=== PATIENT | female | born 1935 | race Caucasian/White ===

== ENCOUNTER 2018-05-22 09:09 | Inpatient (IN) ==
[2018-05-22 09:35] LABS: Basophils # 0.1 K/mm3 (0-0.2); Basophils % 0.2 % (0.1-2.0); Eosinophils # 0.1 K/mm3 (0.0-0.4); Eosinophils % 0.3 % (0.1-12.0); Hematocrit 36.8 % (37.0-47.0); Hemoglobin 11.8 g/dL (12.2-16.2); Lymphocytes # 1.9 K/mm3 (0.7-4.5); Lymphocytes % 8.1 % (10-50); Mean Corpuscular HGB Conc 31.9 g/dL (31.8-35.4); Mean Corpuscular Hemoglobin 28.7 pg (27.0-31.2); Mean Corpuscular Volume 89.9 fl (81-99); Mean Platelet Volume 7.8 fl (7.4-10.4); Monocytes # 0.9 K/mm3 (0.1-1.0); Neutrophils # 20.6 K/mm3 (1.8-7.8); Neutrophils % 87.4 % (37.0-80.0); Platelet Count 335 K/mm3 (142-424); Red Cell Distribution Width 13.8 % (11.5-17.5); White Blood Count 23.6 K/mm3 (4.8-10.8)
[2018-05-22 09:46] LABS: Albumin Level 3.2 gm/dL (3.4-5.0); Albumin/Globulin Ratio 0.7 (1.1-1.8); Anion Gap 19.8 mEq/L (5-15); Calcium 8.9 mg/dL (8.5-10.1); Globulin 4.3 gm/dl (1.3-3.2); Potassium 4.8 mmoL/L (3.5-5.1); Total Protein,Serum 7.5 gm/dL (6.4-8.2)
[2018-05-22 09:50] LABS: Lymphocytes % 7 % (10-50); Monocytes % 6 % (2-9); Neutrophils % 72 % (42-76); RBC Morphology Normal; Total Cells Counted 100
--- NOTE | 2018-05-22 11:35 | Emergency Department Note ---
ED Disposition Clinical Impression: Proctocolitis, Acute renal failure, Dehydration Disposition: Admitted as Observation Condition on Discharge: Fair Instructions: DI for Gastrointestinal Bleeding Referrals: Clari Graham MD [Primary Care Provider] - Time of Disposition: 12:09 - Critical Care Critical Care Time: No Attestation: On 05/22/18, the high probability of a clinically significant, sudden or life threatening deterioration of the following system(s) required my full and direct attention, intervention and personal management. The time I documented below is in addition to time spent performing reported procedures but includes the fol lowing listed in this critical care notation. Medical Decision Making - Medical Records Medical records reviewed: Yes: I reviewed the patient's medical records. - Atul Inquiry Pt receiving controlled substance: No Atul was queried for this patient: No Vital Signs: 05/22/18 09:10 05/22/18 09:31 05/22/18 09:59 Temperature 98.4 F Temperature Source Oral Pulse Rate [Right Radial] 120 H 92 H Respiratory Rate 18 20 Blood Pressure [Right Arm] 102/52 L 89/54 L 113/51 L Blood Pressure Mean [Right Arm] 68 65 71 Blood Pressure Source [Right Arm] Automatic Cuff Automatic Cuff Blood Pressure Position [Right Arm] Sitting Supine 02 Sat by Pulse Oximetry 98 98 Oxygen Delivery Method Room Air Room Air 05/22/18 10:59 05/22/18 11:52 Temperature Temperature Source Pulse Rate [Right Radial] 93 H 91 H Respiratory Rate 18 Blood Pressure [Right Arm] 105/53 L 98/46 L Blood Pressure Mean [Right Arm] 70 63 Blood Pressure Source [Right Arm] Automatic Cuff Blood Pressure Position [Right Arm] Sitting 02 Sat by Pulse Oximetry 96 94 L Oxygen Delivery Method Room Air - Lab Data Lab Results 05/22/18 09:16: WBC 23.6 H*, RBC 4.10 L, Hgb 11.8 L, Hct 36.8 L, MCV 89.9, MCH 28.7, MCHC 31.9, RDW 13.8, Plt Count 335, MPV 7.8, Neut % (Auto) 87.4 H, Lymph % (Auto) 8.1 L, [place] % (Auto) 4.0, Eos % (Auto) 0.3, Baso % (Auto) 0.2, Neut # (Auto) 20.6 H, Lymph # (Auto) 1.9, [place] # (Auto) 0.9, Eos # (Auto) 0.1, Baso # (Auto) 0.1, Total Counted 100, Neutrophils % (Manual) 72, Band Neutrophils % 14.0 H, Lymphocytes % (Manual) 7 L, Atypical Lymphs % 1.0, Monocytes % (Manual) 6, Platelet Estimate Normal, RBC Morphology Normal 05/22/18 09:16: Sodium 133 L, Potassium 4.8, Chloride 99, Carbon Dioxide 19 L, Anion Gap 19.8 H, BUN 72 H, Creatinine 3.72 H, Estimated Creat Clear 16, Estimated GFR 12 L*, Est GFR ( Amer) 14 L*, Glucose 138 H, Calcium 8.9, Total Bilirubin 1.0, AST 60 H, ALT 37, Alkaline Phosphatase 134 H, Total Protein 7.5, Albumin 3.2 L, Globulin 4.3 H, Albumin/Globulin Ratio 0.7 L, Lipase 94 05/22/18 09:33: Stool Occult Blood Positive A 05/22/18 09:55: Lactate 1.5 Result diagrams: 05/22/18 09:16 05/22/18 09:16 Orders (Tests/Meds): ED MEDICATIONS Generic Name Dose Route Start Last Admin Trade Name Freq PRN Reason Stop Dose Admin Sodium Chloride 1,000 mls @ 500 mls/hr 05/22/18 09:30 05/22/18 10:52 Sod Chlor 0.9% 1000ml Bag IV 06/21/18 09:29 500 mls/hr .Q2H SANDRA Administration Sodium Chloride 2,540 mls @ 1,270 mls/hr 05/22/18 10:11 Sod Chlor 0.9% 1000ml Bag 30 ml/kg infuse over 2 hr (2540 ml) 05/22/18 12:10 IV .Q2H ONE Discontinued Medications Generic Name Dose Route Start Last Admin Trade Name Freq PRN Reason Stop Dose Admin Piperacillin Sod/Tazobactam 100 mls @ 200 mls/hr 05/22/18 11:30 05/22/18 11:41 Sod 4.5 gm/ Sodium Chloride IV 05/22/18 11:31 200 mls/hr Q6H SANDRA Administration Protocol Morphine Sulfate 2 mg 05/22/18 09:21 05/22/18 10:00 Morphine 2mg/Ml Syringe IV 05/22/18 09:22 2 mg ONCE ONE Administration Ondansetron HCl 4 mg 05/22/18 09:21 05/22/18 09:36 Zofran 4mg/2ml Vial IV 05/22/18 09:22 4 mg ONCE ONE Administration ORDERS Category Date Time Status Occult Blood,Stool Stat Lab 05/22/18 09:33 Ordered UA [Urinalysis and Microscopic] Stat Lab 05/22/18 09:20 Ordered Blood Culture Stat Micro 05/22/18 09:55 Received General Adult HPI - General Chief complaint: GI Bleed Stated complaint: black stools Time Seen by Provider: 05/22/18 09:15 Mode of Arrival: Family Vehicle Limitations: No Limitations Description of Symptoms (Recalled from ER Triage Doc. by RN): pt states she has had diarrhea starting tuesday and last night the stool turned black. pt states she took some pepto bismol for the diarrhea. - History of Present Illness HPI narrative: diarrhea, progressive weakness, black stools but taking pepto - Related Data Home Medications Medication Instructions Recorded Confirmed Allopurinol [Allopurinol 100mg 100 mg PO DAILY PRN 05/22/18 05/22/18 tablet] Atorvastatin Calcium [Atorvastatin 20 mg PO DAILY 05/22/18 05/22/18 20mg Tab] Lisinopril [Lisinopril 40mg Tablet] 40 mg PO DAILY 05/22/18 05/22/18 Triamterene/Hydrochlorothiazid 1 each PO DAILY 05/22/18 05/22/18 [Triamterene-Hctz 50-25 mg Cap] Allergies Allergy/AdvReac Type Severity Reaction Status Date / Time codeine Allergy Verified 05/22/18 09:21 Iodinated Contrast Media - Allergy Verified 05/22/18 09:21 Oral and [facility] History - Hepatitis A Screen Drug use history?: No High risk sexual behaviors?: No History of sexually transmitted infection?: No Currently employed?: No Childcare worker?: No Do you have indoor plumbing?: Yes Do you have electricity?: Yes Attestation statement:: This patient has been screened for Hepatitis A risk factors. I have reviewed the patient's past medical history: No Medical History: Reports:: Cancer (breast,melanoma, colon) Denies:: Diabetes Mellitus Type 1, Diabetes Mellitus Type 2, MRSA Laterality Cases: Left: Lumpectomy Amputation: No - Social History Smoking Status: Never smoker Alcohol Intake: never - Psychiatric History Expresses thoughts of harming self/others: None Suicide Plan Description: No Plan ROS Obtained: Yes Systems reviewed as appropriate & no additional complaints - Constitutional Constitutional: Reports system reviewed and no additional complaints, except as docu, Reports chills, Reports fever(s), Reports malaise, Reports weakness - Eyes Eyes: Reports system reviewed and no additional complaints, except as docu, Denies change in vision - ENT Ears, Nose, Mouth, and Throat: Reports system reviewed and no additional complaints, except as docu, Denies throat swelling, Denies other - Cardiovascular Cardiovascular: Reports system reviewed and no additional complaints, except as docu, Denies chest pain, Denies chest pain at rest, Denies chest pain with activity, Denies dyspnea - Respiratory Respiratory: Yes system reviewed and no additional complaints, except as docu, No pain on inspiration, No pain with cough - Gastrointestinal Gastrointestingal: Reports: system reviewed and no additional complaints, except as docu, abdominal pain, diarrhea, nausea, vomiting Comments: severe rectal pain - Musculoskeletal Musculoskeletal: Reports system reviewed and no additional complaints, except as docu, Denies joint pain, Denies tingling - Integumentary/Breasts Skin/Breast: Reports system reviewed and no additional complaints, except as docu, Denies rash, Denies skin pain - Neurologic Neurologic: Denies confusion, Denies sensory deficit, Reports weakness - Hematologic/Lymphatic Henatologic/Lymphatic: Denies easy bleeding, Denies easy bruising, Denies lymphadenopathy Physical Exam - General General appearance: alert, in no apparent distress - Head Head exam: atraumatic, normocephalic, normal inspection - Eye Eye exam: Present: normal appearance, PERRL, EOMI - ENT ENT exam: Present: normal exam, normal oropharynx, mucous membranes moist, TM's normal bilaterally, normal external ear exam - Neck Neck exam: Present: normal inspection, full ROM, trachea midline. Absent: meningismus, lymphadenopathy - Chest Chest inspection: Present: normal inspection, symmetric chest wall rise. Absent: tenderness - Respiratory Respiratory exam: Present: normal lung sounds bilaterally. Absent: respiratory distress - Cardiovascular Cardiovascular exam: Present: regular rate, tachycardia. Absent: JVD - Abdominal Exam Abdominal exam: Present: soft, tenderness. Absent: distention, guarding, rebound, rigidity - Extremities Exam Extremities exam: Present: normal inspection, normal capillary refill. Absent: full ROM, tenderness - Back Exam Back exam: Present: normal inspection. Absent: tenderness - Neurological Exam Neurological exam: Present: alert, oriented X3 - Lymphatic Lymphatic Findings: no adenopathy
--- NOTE | 2018-05-22 13:12 | History & Physical Report ---
*Admission Date: 05/22/18 *Chief complaint: Diarrhea and abdominal pain *History of present illness: Ms. Ryan is an 82-year-old female with a history of breast and colon cancer, hypertension, and gout who presented to [facility] emergency room with 2 days of diarrhea. Patient states she was having stools every 10 minutes for the past 2 days. Then her stool turned black yesterday after taking Pepto-Bismol. She also experienced nausea and vomited x2. She continued taking her diuretic and lisinopril. She had minimal p.o. intake. She did void yesterday. In the emergency room she was given IV fluid bolus, morphine sulfate for the abdominal discomfort and a dose of piperacillin and Zofran IV. Stool was noted to be positive for occult blood. White blood cell count was 23,000 with a hemoglobin of 11 .8 and hematocrit of 36.8. BUN and creatinine were elevated at 72/3.72. Blood pressure was low at 89/54 -98/46. CT of the abdomen/pelvis was abnormal revealing proctitis and cholecystitis. Patient was thus admitted with IV fluids and GI rest. Diarrhea panel has been ordered. At the time of this exam patient is feeling better. She has had no diarrhea since being admitted. She has not voided either. Since receiving the morphine her abdomen does not hurt. Her biggest complaint now is her hemorrhoids. The morphine has helped these as well. 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 - *Social History Smoking Status: Never smoker Alcohol Intake: never Travel in the last 8 weeks: None - Psychiatric History Expresses thoughts of harming self/others: None Suicide Plan Description: No Plan *Family Hx:: Cancer, Coronary Artery Disease, Diabetes Review of Systems - Constitutional Reports lack of energy, Reports weakness, Denies fever(s) - ENT Reports dizziness, Denies ear pain, Denies sore throat - *Cardiovascular Denies chest pain, Denies shortness of breath, Denies leg swelling, Denies fast heart rate - *Respiratory Denies chest congestion, Denies cough, Denies shortness of breath, Denies coughing up blood - *Gastrointestinal Reports abdominal pain, Reports change in stools, Reports black, tarry stools, Reports nausea, Reports vomiting - *Genitourinary Denies painful urination - *Musculoskeletal Reports muscle weakness (She had to have assistance with walking when coming to the hospital) - *Neurologic Reports unsteadiness, Reports dizziness, Reports weakness, Denies confusion, Denies sensory deficit, Denies tingling Meds Home Medications Medication Instructions Recorded Confirmed Type Allopurinol [Allopurinol 100mg 100 mg PO DAILYP PRN 05/22/18 05/22/18 History tablet] Atorvastatin Calcium [Atorvastatin 20 mg PO MOWEFR 05/22/18 05/22/18 History 20mg Tab] Cholecalciferol (Vitamin D3) 2,000 unit PO DAILY 05/22/18 05/22/18 History [Vitamin D3 1,000 Unit Tab] Lisinopril [Lisinopril 40mg Tablet] 40 mg PO DAILY 05/22/18 05/22/18 History Meclizine HCl [Antivert 25mg 25 mg PO TIDP PRN 05/22/18 05/22/18 History tablet] Multivitamin [Multivitamins] 1 each PO DAILY 05/22/18 05/22/18 History Triamterene/Hydrochlorothiazid 1 tab PO DAILY 05/22/18 05/22/18 History [Maxzide-25 tablet] hydroCHLOROthiazide 12.5 mg PO DAILYP PRN 05/22/18 05/22/18 History [Hydrochlorothiazide 12.5mg Tab] Allergies Allergy/AdvReac Type Severity Reaction Status Date / Time codeine Allergy Verified 05/22/18 09:21 Iodinated Contrast Media - Allergy Verified 05/22/18 09:21 Oral and Exam Vital signs and Labs for Last 24 Hours: Temp Pulse Resp BP Pulse Ox 98.4 F 91 H 18 98/46 L 94 L 05/22/18 09:10 05/22/18 11:52 05/22/18 11:52 05/22/18 11:52 05/22/18 11:52 Laboratory Results - last 24 hr 05/22/18 09:16: WBC 23.6 H*, RBC 4.10 L, Hgb 11.8 L, Hct 36.8 L, MCV 89.9, MCH 28.7, MCHC 31.9, RDW 13.8, Plt Count 335, MPV 7.8, Neut % (Auto) 87.4 H, Lymph % (Auto) 8.1 L, [place] % (Auto) 4.0, Eos % (Auto) 0.3, Baso % (Auto) 0.2, Neut # (Auto) 20.6 H, Lymph # (Auto) 1.9, [place] # (Auto) 0.9, Eos # (Auto) 0.1, Baso # (Auto) 0.1, Total Counted 100, Neutrophils % (Manual) 72, Band Neutrophils % 14.0 H, Lymphocytes % (Manual) 7 L, Atypical Lymphs % 1.0, Monocytes % (Manual) 6, Platelet Estimate Normal, RBC Morphology Normal 05/22/18 09:16: Sodium 133 L, Potassium 4.8, Chloride 99, Carbon Dioxide 19 L, Anion Gap 19.8 H, BUN 72 H, Creatinine 3.72 H, Estimated Creat Clear 16, Estimated GFR 12 L*, Est GFR ( Amer) 14 L*, Glucose 138 H, Calcium 8.9, Total Bilirubin 1.0, AST 60 H, ALT 37, Alkaline Phosphatase 134 H, Total Protein 7.5, Albumin 3.2 L, Globulin 4.3 H, Albumin/Globulin Ratio 0.7 L, Lipase 94 05/22/18 09:33: Stool Occult Blood Positive A 05/22/18 09:55: Lactate 1.5 I & O for Last 24 hours: Intake & Output 05/20/18 05/21/18 05/22/18 05/23/18 11:59 11:59 11:59 11:59 Weight 187 lb Radiology Reports for the Last 24 Hours: 05/22/18 CT of abdomen/pelvis IMPRESSION: 1. Mild diffuse of the sigmoid colon and rectum. There is moderate stranding of the perirectal and presacral fat. Proctocolitis is considered. This does not have the typical appearance for diverticulitis being more diffuse than what one would expect for diverticulitis. There has been prior surgery at the recto sigmoid junction. Infiltrating neoplasm not totally excluded but felt to be less likely. Follow-up is recommended. Old studies are not available for comparison. 2. Cholelithiasis. 3. Right adrenal adenoma 4. Other nonacute findings as described above - Constitutional no acute distress Comments: Lying comfortably in hospital bed - *Routine HEENT Exam Head: Present: normocephalic, atraumatic Eye: Present: PERRL. Absent: conjunctival icterus, scleral injection ENT: Present: mucous membranes moist, nares patent - *Routine Neck Exam Present: supple. Absent: carotid bruit, lymphadenopathy, thyromegaly - *Routine Respiratory Exam Present: CTA bilaterally (Anteriorly and posteriorly) - *Routine Cardiovascular Exam Present: RRR - *Routine Abdominal Exam Present: soft, normoactive bowel sounds, tenderness (Mildly tender in lower quadrants). Absent: distended, guarding, organomegaly - *Routine Rectal Exam Digital: Present: hemorrhoid (Significant bulging edematous hemorrhoids), external hemorrhoid - *Routine Extremities Exam Present: pulses intact. Absent: edema, calf tenderness - *Routine Neurological Exam Present: alert, oriented X3 Assessment and Plan (1) Hypotension Current visit: Yes Status: Acute Category: Medical Code(s): I95.9 - Hypotension, unspecified (2) Dehydration Current visit: Yes Status: Acute Category: Medical Code(s): E86.0 - Dehydration (3) Proctocolitis Current visit: Yes Status: Acute Category: Medical Code(s): K52.9 - Noninfective gastroenteritis and colitis, unspecified (4) Acute renal failure Current visit: Yes Status: Acute Category: Medical Code(s): N17.9 - Acute kidney failure, unspecified (5) Hemorrhoids Current visit: Yes Status: Acute Category: Medical Code(s): K64.9 - Unspecified hemorrhoids (6) Gout Current visit: Yes Status: Chronic Category: Medical Code(s): M10.9 - Gout, unspecified (7) History of colon cancer Current visit: Yes Status: Resolved Category: Medical Code(s): Z85.038 - Personal history of other malignant neoplasm of large intestine (8) History of hypertension Current visit: Yes Status: Chronic Category: Medical Code(s): Z86.79 - Personal history of other diseases of the circulatory system - Assessment and plan all Dx Assessment and Plan for all problems:: She has been started on Zosyn and Flagyl IV. She is receiving IV fluids. Diarrhea panel has been ordered. She is on GI rest and can have clear liquids as tolerated. We will add cream for her hemorrhoids. She is receiving morphine for pain. Labs have been ordered for in the a.m.
--- NOTE | 2018-05-22 14:17 | Pharmacy Consult Notes ---
[facility] Pharmacy VTE Monitoring - Patient Demographics Admission date: 05/22/18 Report Date: 05/22/18 Time: 14:17 Allergies/Adverse Reactions: Patient Allergies codeine Allergy (Verified 05/22/18 09:21) Iodinated Contrast Media - Oral and Allergy (Verified 05/22/18 09:21) Height: 1.6 m Weight: 89.896 kg Patient Problems: Current Active Problems Proctocolitis (Acute) Acute renal failure (Acute) Dehydration (Acute) - VTE Risk Labs: VTE Related Lab Results Hgb 11.8 g/dL (12.2-16.2) L 05/22/18 09:16 Hct 36.8 % (37.0-47.0) L 05/22/18 09:16 Plt Count 335 K/mm3 (142-424) 05/22/18 09:16 BUN 72 mg/dL (7-18) H 05/22/18 09:16 Creatinine 3.72 mg/dL (0.55-1.02) H 05/22/18 09:16 Estimated Creat Clear 16 mL/min (50-200) 05/22/18 09:16 - Prophylaxis VTE Prophylaxis Ordered?: Yes Types of VTE Prophylaxis: TEDS Knee High Location of Applied Device: Bilateral Lower Extremeties
[2018-05-22 19:24] LABS: Microscopic, Urine URINE MICROSCOPIC (MICROSCOPIC)
[2018-05-22 19:31] LABS: Appearance,Urine SL CLOUDY (Clear); Bilirubin,Urine Negative (Negative); Blood, Urine 2+ (Negative); Color,Urine YELLOW (Yellow); Glucose,Urine (UA) Negative (Negative); Ketones,Urine Negative (Negative); Leukocyte Esterase,Urine 2+ (Negative); Protein,Urine 1+ (Negative); Urobilinogen,Urine 0.2 EU/dl (0.2)
[2018-05-22 19:56] LABS: Bacteria,Urine 4+ /lpf; WBC,Urine 20-50 #/hpf (0-3)
[2018-05-23 07:37] LABS: Basophils # 0.1 K/mm3 (0-0.2); Basophils % 0.3 % (0.1-2.0); Eosinophils # 0.1 K/mm3 (0.0-0.4); Eosinophils % 0.4 % (0.1-12.0); Hematocrit 32.4 % (37.0-47.0); Lymphocytes # 1.4 K/mm3 (0.7-4.5); Lymphocytes % 8.7 % (10-50); Mean Corpuscular Hemoglobin 29.4 pg (27.0-31.2); Mean Corpuscular Volume 92.1 fl (81-99); Mean Platelet Volume 7.9 fl (7.4-10.4); Monocytes # 0.8 K/mm3 (0.1-1.0); Neutrophils # 13.2 K/mm3 (1.8-7.8); Neutrophils % 85.6 % (37.0-80.0); Platelet Count 249 K/mm3 (142-424); Red Blood Count 3.52 M/mm3 (4.20-5.40); Red Cell Distribution Width 13.7 % (11.5-17.5); White Blood Count 15.5 K/mm3 (4.8-10.8)
[2018-05-23 07:39] LABS: Anion Gap 14.3 mEq/L (5-15); Calcium 8.2 mg/dL (8.5-10.1); Potassium 4.3 mmoL/L (3.5-5.1)
--- NOTE | 2018-05-23 08:27 | Progress Note ---
Internal Medicine - PN: Subj *Date: 05/23/18 (n) *Time: 08:24 Interval history: Patient's biggest complaint are her hemorrhoids this morning. He states morphine helps briefly. She has had one additional stool during the night and describes it is mushy. She is also voiding. She denies chest pain and shortness of breath. She has retained clear liquids and tolerated well. Abdomen is sore. White blood cell count has decreased to 15,500. BUN and creatinine have improved to 58/2.49. IV fluids are at 125. Exam Vital signs and Labs for Last 24 Hours: Temp Pulse Resp BP Pulse Ox 98.3 F 86 17 112/48 L 97 05/23/18 07:31 05/23/18 07:31 05/23/18 07:31 05/23/18 07:31 05/23/18 07:31 Laboratory Results - last 24 hr 05/22/18 09:16: WBC 23.6 H*, RBC 4.10 L, Hgb 11.8 L, Hct 36.8 L, MCV 89.9, MCH 28.7, MCHC 31.9, RDW 13.8, Plt Count 335, MPV 7.8, Neut % (Auto) 87.4 H, Lymph % (Auto) 8.1 L, [place] % (Auto) 4.0, Eos % (Auto) 0.3, Baso % (Auto) 0.2, Neut # (Auto) 20.6 H, Lymph # (Auto) 1.9, [place] # (Auto) 0.9, Eos # (Auto) 0.1, Baso # (Auto) 0.1, Total Counted 100, Neutrophils % (Manual) 72, Band Neutrophils % 14.0 H, Lymphocytes % (Manual) 7 L, Atypical Lymphs % 1.0, Monocytes % (Manual) 6, Platelet Estimate Normal, RBC Morphology Normal 05/22/18 09:16: Sodium 133 L, Potassium 4.8, Chloride 99, Carbon Dioxide 19 L, Anion Gap 19.8 H, BUN 72 H, Creatinine 3.72 H, Estimated Creat Clear 16, Estimated GFR 12 L*, Est GFR ( Amer) 14 L*, Glucose 138 H, Calcium 8.9, Total Bilirubin 1.0, AST 60 H, ALT 37, Alkaline Phosphatase 134 H, Total Protein 7.5, Albumin 3.2 L, Globulin 4.3 H, Albumin/Globulin Ratio 0.7 L, Lipase 94 05/22/18 09:33: Stool Occult Blood Positive A 05/22/18 09:55: Lactate 1.5 05/22/18 19:15: Urine Color Yellow, Urine Appearance Sl cloudy, Urine pH 6.0, Ur Specific [place] 1.020, Urine Protein 1+, Urine Glucose (UA) Negative, Urine Ketones Negative, Urine Blood 2+, Urine Nitrate Negative, Urine Bilirubin Negative, Urine Urobilinogen 0.2, Ur Leukocyte Esterase 2+ A, Urine WBC 20-50, Ur Squamous Epith Cells 10-20, Urine Bacteria 4+ 05/23/18 02:30: Stl Aeromonas (PCR) Not detected, Stl C. cayetanensis PCR Not detected, Stool Rotavirus (PCR) Not detected, Stl Adenov F 40/41 PCR Not detected, Stool Astrovirus (PCR) Not detected, Stool Campylobacter PCR Not detected, Stl C.difficile Tox PCR Not detected, Stool Cryptosporidium PCR Not detected, Stl E.coli Shiga Tox PCR Not detected, Stool E coli O157 PCR Not detected, Stl Enterotoxigenic E PCR Not detected, Stool EPEC (PCR) Not detected, Stool EAEC (PCR) Not detected, Stl E. histolytica PCR Not detected, Stool Giardia [place]lia PCR Not detected, Stool Salmonella PCR Not detected, Stool Sapovirus (PCR) Not detected, Stl P. shigelloides PCR Not detected, Stl Shigella/EIEC PCR Not detected, St Y.enterocolitica PCR Not detected, Stool Vibrio (PCR) Not detected, Stl Vibrio cholerae PCR Not detected, Stl Norovirus GI/GII PCR Not detected 05/23/18 07:07: WBC 15.5 H D, RBC 3.52 L, Hct 32.4 L, MCV 92.1, MCH 29.4, MCHC 32.0, RDW 13.7, Plt Count 249 D, MPV 7.9, Neut % (Auto) 85.6 H, Lymph % (Auto) 8.7 L, [place] % (Auto) 5.0, Eos % (Auto) 0.4, Baso % (Auto) 0.3, Neut # (Auto) 13.2 H, Lymph # (Auto) 1.4, [place] # (Auto) 0.8, Eos # (Auto) 0.1, Baso # (Auto) 0.1 05/23/18 07:07: Sodium 136, Potassium 4.3, Chloride 104, Carbon Dioxide 22, Anion Gap 14.3, BUN 58 H, Creatinine 2.49 H D, Estimated Creat Clear 25, Estimated GFR 19 L*, Est GFR ( Amer) 22 L D, Glucose 103 D, Calcium 8.2 L I & O for Last 24 hours: Intake & Output 05/20/18 05/21/18 05/22/18 05/23/18 11:59 11:59 11:59 11:59 Intake Total 4216 / 4216 Output Total 850 / 850 Balance 3366 / 3366 Weight 187 lb 198 lb 3 oz - Constitutional no acute distress Comments: Awake and alert - *Routine Respiratory Exam Present: CTA bilaterally (Anteriorly and posteriorly) - *Routine Cardiovascular Exam Present: RRR - *Routine Abdominal Exam Present: soft, normoactive bowel sounds. Absent: tenderness, distended - *Routine Rectal Exam Digital: Present: external hemorrhoid (Less edema) - *Routine Extremities Exam Absent: edema, calf tenderness (NIKKI hose on) - *Routine Neurological Exam Present: alert, oriented X3 Assessment and Plan (1) Hypotension Current visit: Yes Status: Acute Category: Medical Code(s): I95.9 - Hypotension, unspecified (2) Dehydration Current visit: Yes Status: Acute Category: Medical Code(s): E86.0 - Dehydration (3) Proctocolitis Current visit: Yes Status: Acute Category: Medical Code(s): K52.9 - Noninfective gastroenteritis and colitis, unspecified (4) Acute renal failure Current visit: Yes Status: Acute Category: Medical Code(s): N17.9 - Acute kidney failure, unspecified (5) Hemorrhoids Current visit: Yes Status: Acute Category: Medical Code(s): K64.9 - Unspecified hemorrhoids (6) Gout Current visit: Yes Status: Chronic Category: Medical Code(s): M10.9 - Gout, unspecified (7) History of colon cancer Current visit: Yes Status: Resolved Category: Medical Code(s): Z85.038 - Personal history of other malignant neoplasm of large intestine (8) History of hypertension Current visit: Yes Status: Chronic Category: Medical Code(s): Z86.79 - Personal history of other diseases of the circulatory system (9) Diarrhea Current visit: Yes Status: Acute Category: Medical Code(s): R19.7 - Diarrhea, unspecified - Assessment and plan all Dx Assessment and Plan for all problems:: Diarrhea has improved. Remains on IV antibiotics. Renal function has improved although still abnormal. We will continue with IV fluids for now. We will add lidocaine ointment and Tucks for her hemorrhoids. Will advance diet to full liquids
[2018-05-23 12:54] LABS: Hemoglobin 10.5 g/dL (12.2-16.2)
[2018-05-23 13:52] LABS: Lymphocytes % 11 % (10-50); Monocytes % 5 % (2-9); Neutrophils % 82 % (42-76); Total Cells Counted 100
[2018-05-23 13:53] LABS: RBC Morphology Normal
[2018-05-24 08:18] LABS: Basophils # 0.1 K/mm3 (0-0.2); Basophils % 0.5 % (0.1-2.0); Eosinophils # 0.1 K/mm3 (0.0-0.4); Eosinophils % 0.8 % (0.1-12.0); Hematocrit 31.1 % (37.0-47.0); Hemoglobin 9.9 g/dL (12.2-16.2); Lymphocytes % 10.4 % (10-50); Mean Corpuscular HGB Conc 31.8 g/dL (31.8-35.4); Mean Corpuscular Hemoglobin 29.4 pg (27.0-31.2); Mean Corpuscular Volume 92.5 fl (81-99); Mean Platelet Volume 7.8 fl (7.4-10.4); Monocytes # 0.6 K/mm3 (0.1-1.0); Monocytes % 5.8 % (1.7-9.3); Neutrophils # 8.2 K/mm3 (1.8-7.8); Neutrophils % 82.6 % (37.0-80.0); Platelet Count 287 K/mm3 (142-424); Red Blood Count 3.36 M/mm3 (4.20-5.40); Red Cell Distribution Width 13.7 % (11.5-17.5); White Blood Count 9.9 K/mm3 (4.8-10.8)
--- NOTE | 2018-05-24 08:26 | Progress Note ---
Addendum entered and electronically signed by MANISHA Cha 05/24/18 08:29: Of note, patient's BMI is 35.1. Original Note: Internal Medicine - PN: Subj *Date: 05/24/18 *Time: 08:23 Interval history: Patient states she is still not feeling well this morning. She continues to have diarrhea and it is dark in color. She states she still has lower abdominal cramping. Her hemorrhoids are still large. She does feel stronger after eating and drinking. Exam Vital signs and Labs for Last 24 Hours: Temp Pulse Resp BP Pulse Ox 98.3 F 81 15 107/48 L 96 05/24/18 07:27 05/24/18 07:27 05/24/18 07:27 05/24/18 07:27 05/24/18 07:27 Laboratory Results - last 24 hr 05/23/18 07:07: Hgb 10.5 L D, Total Counted 100, Neutrophils % (Manual) 82 H, Band Neutrophils % 2.0, Lymphocytes % (Manual) 11, Monocytes % (Manual) 5, Platelet Estimate Normal, RBC Morphology Normal I & O for Last 24 hours: Intake & Output 05/21/18 05/22/18 05/23/18 05/24/18 11:59 11:59 11:59 11:59 Intake Total 4676 / 4676 4308 / 4308 Output Total 1050 / 1050 450 / 450 Balance 3626 / 3626 3858 / 3858 Weight 187 lb 198 lb 3 oz Microbiology Reports for the Last 24 Hours: Microbiology 05/22/18 19:15 Urine,Clean Catch Urine Culture - Preliminary NO GROWTH AFTER 24 HOURS - Constitutional no acute distress - *Routine Respiratory Exam Present: CTA bilaterally - *Routine Cardiovascular Exam Present: RRR - *Routine Abdominal Exam Present: soft, normoactive bowel sounds, tenderness (bilateral lower quadrants) - *Routine Extremities Exam Absent: cyanosis, clubbing, edema - *Routine Skin Exam Present: warm. Absent: rash Assessment and Plan (1) Hypotension Current visit: Yes Status: Acute Category: Medical Code(s): I95.9 - Hypotension, unspecified (2) Dehydration Current visit: Yes Status: Acute Category: Medical Code(s): E86.0 - Dehydration (3) Proctocolitis Current visit: Yes Status: Acute Category: Medical Code(s): K52.9 - Noninfective gastroenteritis and colitis, unspecified (4) Acute renal failure Current visit: Yes Status: Acute Category: Medical Code(s): N17.9 - Acute kidney failure, unspecified (5) Hemorrhoids Current visit: Yes Status: Acute Category: Medical Code(s): K64.9 - Unspecified hemorrhoids (6) Gout Current visit: Yes Status: Chronic Category: Medical Code(s): M10.9 - Gout, unspecified (7) History of colon cancer Current visit: Yes Status: Resolved Category: Medical Code(s): Z85.038 - Personal history of other malignant neoplasm of large intestine (8) History of hypertension Current visit: Yes Status: Chronic Category: Medical Code(s): Z86.79 - Personal history of other diseases of the circulatory system (9) Diarrhea Current visit: Yes Status: Acute Category: Medical Code(s): R19.7 - Diarrhea, unspecified - Assessment and plan all Dx Assessment and Plan for all problems:: White blood cell count and renal functions have improved. Will repeat labs tomorrow. Diarrhea continues. Patient will need a colonoscopy once colitis resolves. She states she already has an appointment with her surgeon for a colonoscopy at the end of May.
[2018-05-24 08:39] LABS: Anion Gap 14.9 mEq/L (5-15); Calcium 8.1 mg/dL (8.5-10.1); Potassium 3.9 mmoL/L (3.5-5.1)
[2018-05-25 07:23] LABS: Basophils # 0.1 K/mm3 (0-0.2); Basophils % 0.6 % (0.1-2.0); Eosinophils # 0.1 K/mm3 (0.0-0.4); Hemoglobin 9.9 g/dL (12.2-16.2); Lymphocytes # 1.7 K/mm3 (0.7-4.5); Mean Corpuscular Hemoglobin 28.5 pg (27.0-31.2); Mean Corpuscular Volume 91.9 fl (81-99); Mean Platelet Volume 7.2 fl (7.4-10.4); Monocytes # 0.7 K/mm3 (0.1-1.0); Monocytes % 7.7 % (1.7-9.3); Neutrophils # 6.8 K/mm3 (1.8-7.8); Neutrophils % 72.6 % (37.0-80.0); Platelet Count 316 K/mm3 (142-424); Red Blood Count 3.48 M/mm3 (4.20-5.40); Red Cell Distribution Width 13.6 % (11.5-17.5); White Blood Count 9.4 K/mm3 (4.8-10.8)
[2018-05-25 07:27] LABS: Albumin Level 2.5 gm/dL (3.4-5.0); Albumin/Globulin Ratio 0.7 (1.1-1.8); Bilirubin,Total 0.5 mg/dL (0.2-1.0); Calcium 8.4 mg/dL (8.5-10.1); Globulin 3.5 gm/dl (1.3-3.2)
--- NOTE | 2018-05-25 09:25 | Progress Note ---
Internal Medicine - PN: Subj *Date: 05/25/18 *Time: 09:22 Interval history: She is feeling much better. She is having less discomfort from her hemorrhoidal tissue. Her bowel movements are loose but not frequent. Her white blood cell count is normal. On exam there is much less edema and inflammation of the hemorrhoidal tissue. A significant amount of this was able to be reduced this morning. Exam Vital signs and Labs for Last 24 Hours: Temp Pulse Resp BP Pulse Ox 98.3 F 78 18 145/63 H 97 05/25/18 07:27 05/25/18 07:27 05/25/18 07:27 05/25/18 07:27 05/25/18 07:42 Laboratory Results - last 24 hr 05/25/18 07:07: WBC 9.4, RBC 3.48 L, Hgb 9.9 L, Hct 32.0 L, MCV 91.9, MCH 28.5, MCHC 31.0 L, RDW 13.6, Plt Count 316, MPV 7.2 L, Neut % (Auto) 72.6, Lymph % (Auto) 18.0, Dunn % (Auto) 7.7, Eos % (Auto) 1.0, Baso % (Auto) 0.6, Neut # (Auto) 6.8, Lymph # (Auto) 1.7, Dunn # (Auto) 0.7, Eos # (Auto) 0.1, Baso # (Auto) 0.1 05/25/18 07:07: Sodium 139, Potassium 4.0, Chloride 105, Carbon Dioxide 22, Anion Gap 16.0 H, BUN 24 H D, Creatinine 1.58 H, Estimated Creat Clear 39, Estimated GFR 31 L, Est GFR ( Amer) 38 L D, Glucose 105, Calcium 8.4 L, Total Bilirubin 0.5, AST 26 D, ALT 30, Alkaline Phosphatase 69, Total Protein 6.0 L, Albumin 2.5 L, Globulin 3.5 H, Albumin/Globulin Ratio 0.7 L I & O for Last 24 hours: Intake & Output 05/22/18 05/23/18 05/24/18 05/25/18 11:59 11:59 11:59 11:59 Intake Total 4676 / 4676 4408 / 4408 921 / 921 Output Total 1050 / 1050 650 / 650 Balance 3626 / 3626 3758 / 3758 921 / 921 Weight 187 lb 198 lb 3 oz 198 lb 2.988 oz Microbiology Reports for the Last 24 Hours: Microbiology 05/22/18 19:15 Urine,Clean Catch Urine Culture - Final NO GROWTH AFTER 48 HOURS 05/22/18 09:55 Blood Blood Culture - Preliminary NO GROWTH AFTER 48 HOURS 05/22/18 09:55 Blood Blood Culture - Preliminary NO GROWTH AFTER 48 HOURS - Constitutional no acute distress - *Routine HEENT Exam Head: Present: normocephalic Eye: Present: PERRL ENT: Present: mucous membranes moist - *Routine Respiratory Exam Absent: respiratory distress - *Routine Cardiovascular Exam Present: RRR - *Routine Abdominal Exam Present: soft. Absent: tenderness - *Routine Rectal Exam Comments: Less induration and inflammation of the hemorrhoidal tissue. A significant amount could be reduced this morning. There is no bleeding. - *Routine Extremities Exam Present: edema (Trace) - *Routine Neurological Exam Present: alert, oriented X3 Assessment and Plan (1) Proctocolitis Current visit: Yes Status: Acute Category: Medical Code(s): K52.9 - Noninfective gastroenteritis and colitis, unspecified (2) Hypotension Current visit: Yes Status: Acute Category: Medical Code(s): I95.9 - Hypotension, unspecified (3) Dehydration Current visit: Yes Status: Acute Category: Medical Code(s): E86.0 - Dehydration (4) Acute renal failure Current visit: Yes Status: Acute Category: Medical Code(s): N17.9 - Acute kidney failure, unspecified (5) Hemorrhoids Current visit: Yes Status: Acute Category: Medical Code(s): K64.9 - Unspecified hemorrhoids (6) Gout Current visit: Yes Status: Chronic Category: Medical Code(s): M10.9 - Gout, unspecified (7) History of colon cancer Current visit: Yes Status: Resolved Category: Medical Code(s): Z85.038 - Personal history of other malignant neoplasm of large intestine (8) History of hypertension Current visit: Yes Status: Chronic Category: Medical Code(s): Z86.79 - Personal history of other diseases of the circulatory system (9) Diarrhea Current visit: Yes Status: Acute Category: Medical Code(s): R19.7 - Diarrhea, unspecified - Assessment and plan all Dx Assessment and Plan for all problems:: Advance diet. Perhaps we can discharge tomorrow.
--- NOTE | 2018-05-26 08:27 | Progress Note ---
Internal Medicine - PN: Subj *Date: 05/26/18 *Time: 08:24 Interval history: Patient states she is feeling better today. She is still having watery stool but it is no longer dark black, it is more green in color. She states she slept better last night and is eating well this morning. She denies any pain other than in her rectal area. Her hemorrhoids were reduced yesterday by Dr. tripathi but she states she thinks 1 of them has come out again. Exam Vital signs and Labs for Last 24 Hours: Temp Pulse Resp BP Pulse Ox 98.5 F 79 18 121/63 95 05/26/18 04:00 05/26/18 04:00 05/26/18 04:00 05/26/18 04:00 05/26/18 04:00 I & O for Last 24 hours: Intake & Output 05/23/18 05/24/18 05/25/18 05/26/18 11:59 11:59 11:59 11:59 Intake Total 4676 / 4676 4408 / 4408 1021 / 1021 920 / 920 Output Total 1050 / 1050 650 / 650 Balance 3626 / 3626 3758 / 3758 1021 / 1021 920 / 920 Weight 198 lb 3 oz 198 lb 2.988 oz - Constitutional no acute distress - *Routine Respiratory Exam Present: CTA bilaterally - *Routine Cardiovascular Exam Present: RRR - *Routine Abdominal Exam Present: soft, normoactive bowel sounds. Absent: tenderness - *Routine Extremities Exam Absent: cyanosis, clubbing, edema Assessment and Plan (1) Proctocolitis Current visit: Yes Status: Acute Category: Medical Code(s): K52.9 - Noninfective gastroenteritis and colitis, unspecified (2) Hypotension Current visit: Yes Status: Acute Category: Medical Code(s): I95.9 - Hypotension, unspecified (3) Dehydration Current visit: Yes Status: Acute Category: Medical Code(s): E86.0 - Dehydration (4) Acute renal failure Current visit: Yes Status: Acute Category: Medical Code(s): N17.9 - Acute kidney failure, unspecified (5) Hemorrhoids Current visit: Yes Status: Acute Category: Medical Code(s): K64.9 - Unspecified hemorrhoids (6) Gout Current visit: Yes Status: Chronic Category: Medical Code(s): M10.9 - Gout, unspecified (7) History of colon cancer Current visit: Yes Status: Resolved Category: Medical Code(s): Z85.038 - Personal history of other malignant neoplasm of large intestine (8) History of hypertension Current visit: Yes Status: Chronic Category: Medical Code(s): Z86.79 - Personal history of other diseases of the circulatory system (9) Diarrhea Current visit: Yes Status: Acute Category: Medical Code(s): R19.7 - Diarrhea, unspecified - Assessment and plan all Dx Assessment and Plan for all problems:: Patient is improving. We will continue IV antibiotics. Will discuss further care with Dr. tripathi.
--- NOTE | 2018-05-26 14:49 | Discharge Summary ---
General - General Admission date:: 05/22/18 Discharge date: 05/26/18 HPI HPI: Ms. Ryan is an 82-year-old female with a history of breast and colon cancer, hypertension, and gout who presented to [facility] emergency room with 2 days of diarrhea. Patient states she was having stools every 10 minutes for the past 2 days. Then her stool turned black yesterday after taking Pepto-Bismol. She also experienced nausea and vomited x2. She continued taking her diuretic and lisinopril. She had minimal p.o. intake. She did void yesterday. In the emergency room she was given IV fluid bolus, morphine sulfate for the abdominal discomfort and a dose of piperacillin and Zofran IV. Stool was noted to be positive for occult blood. White blood cell count was 23,000 with a hemoglobin of 11 .8 and hematocrit of 36.8. BUN and creatinine were elevated at 72/3.72. Blood pressure was low at 89/54 -98/46. CT of the abdomen/pelvis was abnormal revealing proctitis and cholelithiasis. Patient was thus admitted with IV fluids and GI rest. Diarrhea panel has been ordered. At the time of this exam patient is feeling better. She has had no diarrhea since being admitted. She has not voided either. Since receiving the morphine her abdomen does not hurt. Her biggest complaint now is her hemorrhoids. The morphine has helped these as well. Hospital Course Hospital Course: The patient was started on Zosyn and Flagyl as well as IV fluids. A diarrhea panel was ordered and she was placed on GI rest with clear liquids as tolerated. Morphine was ordered for her pain. Cream was ordered for her very enlarged hemorrhoids. Her white blood cell count and renal functions did improve. She tolerated clear liquids and her diet was advanced. Her diarrhea panel was negative. Her diarrhea continued, but she was able to tolerate her diet. It was felt she would need a colonoscopy once the colitis resolved. She already has an appointment for a colonoscopy the end of May with her surgeon in [place]. Her stools did turn from dark to a green color. Her hemorrhoids were causing her significant pain, therefore they were reduced by Dr. tripathi. Her white blood cell count normalized and her renal functions continued to improve. Her urine and blood cultures showed no growth. Her diet was advanced and she tolerated this well. She was stable to be discharged home on flagyl as well as medication for her hemorroids and will follow up with Dr. Tripathi next Tuesday. We will arrange for endoscopy at that time. Objective Vital signs: Temp Pulse Resp BP Pulse Ox 98.5 F 86 18 144/74 H 96 05/26/18 08:00 05/26/18 08:00 05/26/18 08:00 05/26/18 08:00 05/26/18 08:19 Narrative: - Constitutional no acute distress Comments: Lying comfortably in hospital bed - *Routine HEENT Exam Head: Present: normocephalic, atraumatic Eye: Present: PERRL. Absent: conjunctival icterus, scleral injection ENT: Present: mucous membranes moist, nares patent - *Routine Neck Exam Present: supple. Absent: carotid bruit, lymphadenopathy, thyromegaly - *Routine Respiratory Exam Present: CTA bilaterally (Anteriorly and posteriorly) - *Routine Cardiovascular Exam Present: RRR - *Routine Abdominal Exam Present: soft, normoactive bowel sounds, tenderness (Mildly tender in lower q uadrants). Absent: distended, guarding, organomegaly - *Routine Rectal Exam Digital: Present: hemorrhoid (Significant bulging edematous hemorrhoids), external hemorrhoid - *Routine Extremities Exam Present: pulses intact. Absent: edema, calf tenderness - *Routine Neurological Exam Present: alert, oriented X3 Results Labs on day of discharge: Preliminary micro results at discharge 05/22/18 09:55 Blood Culture - Preliminary Blood NO GROWTH AFTER 48 HOURS 05/22/18 09:55 Blood Culture - Preliminary Blood NO GROWTH AFTER 48 HOURS DS: Diagnosis - Discharge Diagnosis (1) Proctocolitis Status: Acute (2) Hypotension Status: Acute (3) Dehydration Status: Acute (4) Acute renal failure Status: Acute (5) Hemorrhoids Status: Acute (6) Gout Status: Chronic (7) History of colon cancer Status: Resolved (8) History of hypertension Status: Chronic (9) Diarrhea Status: Acute Discharge Plan - Patient Discharge Instructions ACTIVITY: Limited activity DIET: advance to your usual diet Patient Instructions: Diarrhea, [place] Diet, DI for Dehydration -- Adult, DI for Hemorrhoids - Follow up Plan Follow up with: Clari Tripathi MD [Primary Care Provider] - 05/30/18 (appt in [facility]) Disposition: Home, [facility] Medications: Home Medications Medication Instructions Recorded Confirmed Type Allopurinol [Allopurinol 100mg 100 mg PO DAILYP PRN 05/22/18 05/22/18 History tablet] Atorvastatin Calcium [Atorvastatin 20 mg PO MOWEFR 05/22/18 05/22/18 History 20mg Tab] Cholecalciferol (Vitamin D3) 2,000 unit PO DAILY 05/22/18 05/22/18 History [Vitamin D3 1,000 Unit Tab] Lisinopril [Lisinopril 40mg Tablet] 40 mg PO DAILY 05/22/18 05/22/18 History Meclizine HCl [Antivert 25mg 25 mg PO TIDP PRN 05/22/18 05/22/18 History tablet] Multivitamin [Multivitamins] 1 each PO DAILY 05/22/18 05/22/18 History Triamterene/Hydrochlorothiazid 1 tab PO DAILY 05/22/18 05/22/18 History [Maxzide-25 tablet] hydroCHLOROthiazide 12.5 mg PO DAILYP PRN 05/22/18 05/22/18 History [Hydrochlorothiazide 12.5mg Tab] Hydrocortisone Acetate [Anusol HC 30 mg RC BID #14 supp.rect 05/26/18 Rx 30mg Supp] Hydrocortisone [Hydrocortisone 1 gm TP QID #45 tube 05/26/18 Rx 2.5% Cream 28gm Tube] Lidocaine [Lidocaine 5% ointment 1 gm TP NEEDED PRN #45 tube 05/26/18 Rx 35gm tube] metroNIDAZOLE [metroNIDAZOLE 500mg 500 mg PO TID #21 tab 05/26/18 Rx Tablet] Prescriptions/Medication Reconciliation: New Lidocaine [Lidocaine 5% ointment 35gm tube] 1 gm TP NEEDED PRN #45 tube PRN Reason: Hemorrhoids metroNIDAZOLE [metroNIDAZOLE 500mg Tablet] 500 mg PO TID #21 tab Hydrocortisone [Hydrocortisone 2.5% Cream 28gm Tube] 1 gm TP QID #45 tube Hydrocortisone Acetate [Anusol HC 30mg Supp] 30 mg RC BID #14 supp.rect Continue Lisinopril [Lisinopril 40mg Tablet] 40 mg PO DAILY Multivitamin [Multivitamins] 1 each PO DAILY Meclizine HCl [Antivert 25mg tablet] 25 mg PO TIDP PRN PRN Reason: Dizziness hydroCHLOROthiazide [Hydrochlorothiazide 12.5mg Tab] 12.5 mg PO DAILYP PRN PRN Reason: SWELLING Cholecalciferol (Vitamin D3) [Vitamin D3 1,000 Unit Tab] 2,000 unit PO DAILY Atorvastatin Calcium [Atorvastatin 20mg Tab] 20 mg PO MOWEFR Allopurinol [Allopurinol 100mg tablet] 100 mg PO DAILYP PRN PRN Reason: gout Triamterene/Hydrochlorothiazid [Maxzide-25 tablet] 1 tab PO DAILY
== END 2018-05-26 14:05 | disposition home or self-care (01) | DRG 641 ==
LOC: ER 09:09 → 2ND 09:09 → OBSVTOIN 13:44 → 2ND 13:45
PROVIDERS: ADMIT Family Medicine; ATTEND Family Medicine
CPT/HCPCS: 36415; 74176; 80048; 80053; 81001; 82272; 83605; 83690; 85007; 85025; 87040; 87086; 87507; 96365; 96366; 96367; 96375; 99282; G0328; J2405; J2543

== ENCOUNTER → 2018-11-29 10:00 | Outpatient (CLI) | payer MEDICARE, BC, MEDICAID, SELFPAY ==
--- NOTE | 2018-11-29 10:06 | XR_ITS ---
XR hand RT min 3V HISTORY: ITS.REASON: INCLUSION CYST 3RD FINGER ORDERING PHYSICIAN: Clari Graham MD PATIENT AGE: 83 years COMPARISON: None FINDINGS: Bone density is normal. There are multiple areas of joint space narrowing especially the interphalangeal joints of all digits and the third MCP joint and severe narrowing at the first carpal/metacarpal joint and narrowed joint space between the scaphoid bone and the trapezium and trapezoid carpal bones. There is no acute fracture. There is soft tissue prominence posteriorly at the level of the distal phalanx of the third digit and there is associated curvilinear calcifications within the soft tissues in this area. There is no bone deformity or fracture. There is no periosteal reaction. Impression: Areas of osteoarthritis as described above. Soft tissue prominence with calcified densities could be related to the history of a inclusion cyst within the soft tissues at the tip of the third digit. There is no associated osseous abnormality.
== END ==
PROVIDERS: PCP Family Medicine; Visit Provider Family Medicine
DX: L72.0 Epidermal cyst (principal)
CPT/HCPCS: 73130

== ENCOUNTER → 2019-04-27 12:34 | Outpatient (CLI) | payer MEDICARE, BC, MEDICAID, SELFPAY ==
--- NOTE | 2019-04-27 12:42 | XR_ITS ---
PROCEDURE: XR CHEST 2V CLINICAL HISTORY: ACUTE URI Cough and congestion COMPARISON: No exams were available for comparison FINDINGS: Mild cardiomegaly without failure. Lungs are clear bilaterally. The lungs are clear without infiltrates, suspicious nodules, or pleural effusions. No acute bony abnormalities. IMPRESSION: Mild cardiomegaly otherwise negative Dictated by: Bandar Faustin MD 04/27/2019 17:53 Electronically signed by Bandar Faustin MD in [place] 04/27/2019 17:53
== END ==
PROVIDERS: PCP Family Medicine; Visit Provider Physician Assistant
DX: J06.9 Acute upper respiratory infection, unspecified (principal)
CPT/HCPCS: 71046

== ENCOUNTER → 2020-07-23 10:48 | Outpatient (CLI) | payer MEDICARE, BC, MEDICAID, SELFPAY ==
[2020-07-23 12:45] LABS: Chloride 106 mmol/L (98-107); Potassium 4.5 mmoL/L (3.5-5.1); Sodium 140 mmol/L (136-145)
[2020-07-23 12:47] LABS: Blood Urea Nitrogen 25 mg/dl (7-17); Estimated Glomerular Filt Rate 39 ml/min (>60); GFR (African American) 47 ML/MIN (>60)
[2020-07-23 12:48] LABS: Alanine Aminotransferase 16 U/L (12-78); Albumin Level 4.3 g/dl (3.5-5.0); Albumin/Globulin Ratio 1.4 (1.1-1.8); Alkaline Phosphatase 87 U/L (38-126); Anion Gap 10.5 mEq/L (5-15); Aspartate Amino Transferase 23 U/L (14-36); Bilirubin,Total 0.5 mg/dl (0.2-1.3); Calcium 9.6 mg/dl (8.4-10.2); Carbon Dioxide 28 mmol/L (22.0-30.0); Glucose 104 mg/dl (74-100); Total Protein,Serum 7.3 g/dl (6.3-8.2)
[2020-07-23 12:57] LABS: NT Pro Brain Natriuretic Pep. 132 pg/mL (0-450)
[2020-07-23 13:08] LABS: Uric Acid 7.4 mg/dl (2.5-6.2)
== END ==
PROVIDERS: Visit Provider Physician Assistant
DX: R60.0 Localized edema (principal); E79.0 Hyperuricemia without signs of inflammatory arthritis and tophaceous disease; I10 Essential (primary) hypertension; R06.02 Shortness of breath
CPT/HCPCS: 80053; 83880; 84550

== ENCOUNTER → 2021-03-26 10:31 | Outpatient (CLI) | payer MEDICARE, BC, MEDICAID, SELFPAY | PROVIDERS: PCP Family Medicine; Visit Provider Nurse Practitioner | DX: Z20.822 Contact with and (suspected) exposure to COVID-19 (principal) | CPT/HCPCS: C9803; U0003; U0005 ==

== ENCOUNTER → 2021-09-24 10:18 | Outpatient (CLI) | payer MEDICARE, MEDICAID, SELFPAY ==
--- NOTE | 2021-09-24 10:30 | US_ITS ---
FINAL REPORT CLINICAL HISTORY: GALLSTONES FINDINGS: Sonographic images of the right upper quadrant were obtained. The pancreas is partially obscured. The liver is fatty infiltrated. There are several hepatic cysts measuring up to 2.8 cm. There are gallstones present. There is no evidence of biliary ductal dilatation.The common duct measures 3 mm. Limited images of the right kidney are unremarkable. IMPRESSION: Cholelithiasis. Fatty infiltration of the liver. Reviewed, Interpreted and Dictated by Khurram Fine III, MD Transcribed by Penelope Angela Authenticated by Khurram Fine III, MD on 09/24/2021 02:42:[address] [facility]
--- NOTE | 2021-09-24 10:31 | XR_ITS ---
FINAL REPORT CLINICAL HISTORY: LT HEEL PAIN FINDINGS: LEFT CALCANEUS Two views of the left calcaneus demonstrate no acute fracture or dislocation. There are small calcaneal spurs. The visualized joint spaces are normally aligned. The soft tissues are unremarkable. IMPRESSION: No acute bony abnormality. Reviewed, Interpreted and Dictated by Khurram Fine III, MD Transcribed by Rita Hinton Authenticated by Khurram Fine III, MD on 09/24/2021 11:10:10 AM [facility]
== END ==
PROVIDERS: PCP Family Medicine; Visit Provider Physician Assistant
DX: K80.20 Calculus of gallbladder without cholecystitis without obstruction (principal); M79.672 Pain in left foot
CPT/HCPCS: 73650; 76705

== ENCOUNTER 2022-01-22 08:00 | Outpatient (RCR) | payer MEDICARE, MEDICAID, SELFPAY | END 2022-01-22 08:05 | disposition home or self-care (01) | LOC: PT 08:00 | PROVIDERS: PCP Family Medicine; Visit Provider Podiatrist | DX: M76.821 Posterior tibial tendinitis, right leg (principal); M76.822 Posterior tibial tendinitis, left leg; M79.671 Pain in right foot; M79.672 Pain in left foot; R26.81 Unsteadiness on feet; Z91.81 History of falling | CPT/HCPCS: 97010; 97014; 97110; 97112; 97163; 97164; G0283 ==

== ENCOUNTER → 2022-02-16 08:16 | Outpatient (POV) | payer MEDICARE, MEDICAID, SELFPAY | PROVIDERS: Visit Provider Dermatology | DX: Z00.00 Encounter for general adult medical examination without abnormal findings (principal) ==

== ENCOUNTER → 2022-05-06 09:03 | Outpatient (CLI) | payer MEDICARE, MEDICAID, SELFPAY ==
--- NOTE | 2022-05-06 09:07 | XR_ITS ---
FINAL REPORT TECHNIQUE: Bone mineral density was calculated of the lumbar spine and hips. CLINICAL HISTORY: . post menopausal FINDINGS: DEXA BONE DENSITY AXIAL SKELETON Using L1-4, the bone mineral density of the spine is 1.139 g/cm2, corresponding to T-score of 0.8. Using the left hip, the bone mineral density of the femoral neck is 0.950 g/cm2, corresponding to a T-score of 0.1. Using the right hip, the bone mineral density of the femoral neck is 0.886 g/cm2, corresponding to a T-score of 0.3. NOTE: T-score: Standard deviation compared with peak bone mass of young adult mean. *Following the recommendations of the International Society of Bone densitometry, classification of hip BMD is based on the lower of two T-scores; total hip or femoral neck. IMPRESSION: Normal bone mineral density of the lumbar spine and hips. Reviewed, Interpreted and Dictated by Khurram Fine III, MD Transcribed by Jackelin Malik Authenticated and [facility]
== END ==
PROVIDERS: PCP Family Medicine; Visit Provider Physician Assistant
DX: Z78.0 Asymptomatic menopausal state (principal)
CPT/HCPCS: 77080

== ENCOUNTER → 2022-11-29 10:47 | Outpatient (CLI) | payer MEDICARE, MEDICAID, SELFPAY | PROVIDERS: PCP Family Medicine; Visit Provider Physician Assistant | DX: R06.02 Shortness of breath (principal) | CPT/HCPCS: 93306 ==

== ENCOUNTER → 2023-01-11 09:32 | Outpatient (CLI) | payer MEDICARE, MEDICAID, SELFPAY ==
[2023-01-11 10:01] LABS: Microscopic, Urine URINE MICROSCOPIC (MICROSCOPIC)
[2023-01-11 10:30] LABS: Basophils # 0.1 K/mm3 (0-0.2); Basophils % 0.6 % (0.1-2.0); Eosinophils # 0.2 K/mm3 (0.0-0.4); Eosinophils % 2.7 % (0.1-12.0); Hemoglobin 12.7 g/dL (12.2-16.2); Lymphocytes # 2.2 K/mm3 (0.7-4.5); Lymphocytes % 25.2 % (10-50); Mean Corpuscular HGB Conc 33.4 g/dL (31.8-35.4); Mean Corpuscular Hemoglobin 29.9 pg (27.0-31.2); Mean Corpuscular Volume 89.6 fl (81-99); Mean Platelet Volume 7.8 fl (7.4-10.4); Monocytes # 0.6 K/mm3 (0.1-1.0); Monocytes % 6.6 % (1.7-9.3); Neutrophils # 5.7 K/mm3 (1.8-7.8); Neutrophils % 64.9 % (37.0-80.0); Platelet Count 316 K/mm3 (142-424); Red Blood Count 4.24 M/mm3 (4.20-5.40); Red Cell Distribution Width 14.5 % (11.5-17.5); White Blood Count 8.8 K/mm3 (4.8-10.8)
[2023-01-11 10:34] LABS: Appearance,Urine CLEAR (Clear); Bilirubin,Urine Negative (Negative); Blood, Urine Negative (Negative); Color,Urine YELLOW (Yellow); Glucose,Urine (UA) Negative (Negative); Ketones,Urine Negative (Negative); Leukocyte Esterase,Urine Negative (Negative); Nitrate,Urine Negative (Negative); Protein,Urine Negative (Negative); Urobilinogen,Urine 0.2 EU/dl (0.2)
[2023-01-11 10:49] LABS: Creatinine,Urine Random 150 mg/dL (Not Estab.); Total Protein,Urine Random < 5.0 mg/dL (0.0-12.0)
[2023-01-11 11:15] LABS: Bacteria,Urine Trace /lpf; WBC,Urine Occasional #/hpf (0-3)
[2023-01-11 11:16] LABS: Albumin Level 4.5 g/dl (3.5-5.0); Anion Gap 14.4 mEq/L (5-15); Blood Urea Nitrogen 34 mg/dl (7-17); Calcium 9.3 mg/dl (8.4-10.2); Carbon Dioxide 29 mmol/L (22.0-30.0); Chloride 102 mmol/L (98-107); Estimated Glomerular Filt Rate 30 ml/min (>60); GFR (African American) 37 ML/MIN (>60); Glucose 103 mg/dl (74-100); Phosphorous 4.2 mg/dl (2.5-4.5); Potassium 4.4 mmoL/L (3.5-5.1); Sodium 141 mmol/L (136-145)
[2023-01-11 11:26] LABS: Intact Parathyroid Hormone 88.9 pg/mL (7.5-53.5)
[2023-01-11 11:31] LABS: 25-OH Vitamin D, Total 24.5 ng/mL (30-100)
== END ==
PROVIDERS: PCP Physician Assistant; Visit Provider Internal Medicine Nephrology
DX: N18.32 Chronic kidney disease, stage 3b (principal); E55.9 Vitamin D deficiency, unspecified
CPT/HCPCS: 36415; 80069; 81001; 82306; 82570; 83970; 84155; 85025

== ENCOUNTER → 2023-01-13 14:21 | Outpatient (POV) | payer MEDICARE, MEDICAID, SELFPAY | PROVIDERS: Visit Provider Internal Medicine Nephrology | DX: Z00.00 Encounter for general adult medical examination without abnormal findings (principal) ==

== ENCOUNTER → 2023-04-14 06:59 | Outpatient (CLI) | payer MEDICARE, MEDICAID, SELFPAY ==
[2023-04-14 07:10] LABS: Microscopic, Urine URINE MICROSCOPIC (MICROSCOPIC)
[2023-04-14 07:40] LABS: Appearance,Urine CLEAR (Clear); Bilirubin,Urine Negative (Negative); Blood, Urine Negative (Negative); Color,Urine YELLOW (Yellow); Glucose,Urine (UA) Negative (Negative); Ketones,Urine Negative (Negative); Leukocyte Esterase,Urine Negative (Negative); Nitrate,Urine Negative (Negative); Protein,Urine Negative (Negative); Specific Gravity, Urine 1.025 (1.005-1.030); Urobilinogen,Urine 0.2 EU/dl (0.2)
[2023-04-14 08:07] LABS: Creatinine,Urine Random 135 mg/dL (Not Estab.)
[2023-04-14 08:10] LABS: Albumin Level 4.6 g/dl (3.5-5.0); Chloride 103 mmol/L (98-107); Potassium 4.5 mmoL/L (3.5-5.1); Sodium 139 mmol/L (136-145)
[2023-04-14 08:11] LABS: Hemoglobin 13.7 g/dL (12.2-16.2); Mean Corpuscular HGB Conc 34.2 g/dL (31.8-35.4); Mean Corpuscular Hemoglobin 30.6 pg (27.0-31.2); Mean Corpuscular Volume 89.4 fl (81-99); Platelet Count 289 K/mm3 (142-424); Red Blood Count 4.47 M/mm3 (4.20-5.40); Red Cell Distribution Width 13.7 % (11.5-17.5); White Blood Count 6.9 K/mm3 (4.8-10.8)
[2023-04-14 08:13] LABS: Anion Gap 11.5 mEq/L (5-15); Blood Urea Nitrogen 32 mg/dl (7-17); Calcium 9.4 mg/dl (8.4-10.2); Carbon Dioxide 29 mmol/L (22.0-30.0); Estimated Glomerular Filt Rate 33 ml/min (>60); GFR (African American) 40 ML/MIN (>60); Glucose 112 mg/dl (74-100)
[2023-04-14 08:30] LABS: Bacteria,Urine Trace /lpf; Squamous Epithelial Cell,Urine Occasional #/hpf (0-5)
== END ==
PROVIDERS: PCP Family Medicine; Visit Provider Internal Medicine Nephrology
DX: N18.31 Chronic kidney disease, stage 3a (principal)
CPT/HCPCS: 36415; 80069; 81001; 82570; 84155; 85014; 85018; 85048; 85049

== ENCOUNTER 2023-07-27 11:44 | Outpatient (CLI) | payer MEDICARE, SELFPAY ==
[2023-07-27 12:05] LABS: Basophils # 0.1 K/mm3 (0-0.2); Basophils % 0.8 % (0.1-2.0); Eosinophils # 0.2 K/mm3 (0.0-0.4); Eosinophils % 1.9 % (0.1-12.0); Hemoglobin 13.8 g/dL (12.2-16.2); Lymphocytes # 1.7 K/mm3 (0.7-4.5); Lymphocytes % 20.9 % (10-50); Mean Corpuscular HGB Conc 32.1 g/dL (31.8-35.4); Mean Corpuscular Volume 93.6 fl (81-99); Mean Platelet Volume 10.1 fl (7.4-10.4); Monocytes # 0.5 K/mm3 (0.1-1.0); Monocytes % 6.7 % (1.7-9.3); Neutrophils # 5.7 K/mm3 (1.8-7.8); Neutrophils % 69.7 % (37.0-80.0); Platelet Count 278 K/mm3 (142-424); Red Cell Distribution Width 14.1 % (11.5-17.5); White Blood Count 8.1 K/mm3 (4.8-10.8)
[2023-07-27 12:28] LABS: Alanine Aminotransferase 18 U/L (12-78); Albumin Level 4.4 g/dl (3.5-5.0); Albumin/Globulin Ratio 1.6 (1.1-1.8); Alkaline Phosphatase 83 U/L (38-126); Anion Gap 12.1 mEq/L (5-15); Aspartate Amino Transferase 26 U/L (14-36); Bilirubin,Total 0.6 mg/dl (0.2-1.3); Calcium 9.7 mg/dl (8.4-10.2); Carbon Dioxide 28 mmol/L (22.0-30.0); Chloride 104 mmol/L (98-107); Chol/HDL Ratio 3.8 (1-3.5); Cholesterol 211 mg/dl (140-200); Globulin 2.8 g/dL (1.3-3.2); Glucose 106 mg/dl (74-100); HDL Cholesterol 56 mg/dl (40-60); Potassium 4.1 mmoL/L (3.5-5.1); Sodium 140 mmol/L (136-145); Total Protein,Serum 7.2 g/dl (6.3-8.2); Triglycerides 150 mg/dl (30-150); VLDL Cholesterol 30 mg/dL (0-40)
[2023-07-27 12:32] LABS: Blood Urea Nitrogen 22 mg/dl (7-17)
[2023-07-27 12:39] LABS: Direct LDL Cholesterol 100.53 mg/dL (100-129)
[2023-07-27 12:41] LABS: 25-OH Vitamin D, Total 32.6 ng/mL (30-100)
[2023-07-27 12:44] LABS: T4 (Thyroxine) 8.4 ug/dl (5.53-11.0)
[2023-07-27 12:57] LABS: Thyroid Stimulating Hormone 3.89 uIU/mL (0.465-4.68)
[2023-07-27 14:19] LABS: Estimated Glomerular Filt Rate 42 ml/min (>60); GFR (African American) 51 ML/MIN (>60)
== END 2023-07-27 23:59 ==
LOC: LAB.DROPOF 11:44
PROVIDERS: PCP Physician Assistant; Visit Provider Physician Assistant
DX: R53.83 Other fatigue (principal); E78.5 Hyperlipidemia, unspecified; E55.9 Vitamin D deficiency, unspecified; Z79.899 Other long term (current) drug therapy
CPT/HCPCS: 80053; 80061; 82306; 84436; 84443; 85025

== ENCOUNTER 2024-04-20 10:07 | Outpatient (CLI) | payer MEDICARE, SELFPAY ==
[2024-04-20 18:03] LABS: Basophils # 0.1 K/mm3 (0-0.2); Basophils % 1.1 % (0.1-2.0); Eosinophils # 0.4 K/mm3 (0.0-0.4); Eosinophils % 4.1 % (0.1-12.0); Hematocrit 40.2 % (37.0-47.0); Hemoglobin 13.6 g/dL (12.2-16.2); Lymphocytes # 1.6 K/mm3 (0.7-4.5); Lymphocytes % 17.4 % (10-50); Mean Corpuscular HGB Conc 33.9 g/dL (31.8-35.4); Mean Corpuscular Hemoglobin 29.9 pg (27.0-31.2); Mean Corpuscular Volume 88.2 fl (81-99); Mean Platelet Volume 11.2 fl (7.4-10.4); Monocytes # 0.6 K/mm3 (0.1-1.0); Monocytes % 6.8 % (1.7-9.3); Neutrophils # 6.4 K/mm3 (1.8-7.8); Neutrophils % 70.8 % (37.0-80.0); Platelet Count 277 K/mm3 (142-424); Red Blood Count 4.55 M/mm3 (4.20-5.40); Red Cell Distribution Width 14.2 % (11.5-17.5); White Blood Count 9.1 K/mm3 (4.8-10.8)
[2024-04-20 18:49] LABS: Albumin Level 4.5 g/dl (3.5-5.0); Chloride 102 mmol/L (98-107); Potassium 4.7 mmoL/L (3.5-5.1); Sodium 138 mmol/L (136-145)
[2024-04-20 18:52] LABS: Alanine Aminotransferase 17 U/L (12-78); Albumin/Globulin Ratio 1.7 (1.1-1.8); Alkaline Phosphatase 89 U/L (38-126); Anion Gap 10.7 mEq/L (5-15); Aspartate Amino Transferase 29 U/L (14-36); Bilirubin,Total 0.8 mg/dl (0.2-1.3); Blood Urea Nitrogen 25 mg/dl (7-17); Carbon Dioxide 30 mmol/L (22.0-30.0); Estimated Glomerular Filt Rate 42 ml/min (>60); GFR (African American) 51 ML/MIN (>60); Globulin 2.7 g/dL (1.3-3.2); Total Protein,Serum 7.2 g/dl (6.3-8.2)
[2024-04-20 18:53] LABS: Calcium 9.4 mg/dl (8.4-10.2); Glucose 92 mg/dl (74-100)
[2024-04-20 20:54] LABS: Uric Acid 5.9 mg/dl (2.5-6.2)
== END 2024-04-20 23:59 | disposition home or self-care (01) ==
LOC: LAB.DROPOF 04-21 09:16
PROVIDERS: PCP Family Medicine; Visit Provider Family Medicine
DX: N18.9 Chronic kidney disease, unspecified (principal)
CPT/HCPCS: 80053; 84550; 85025

== ENCOUNTER 2024-07-11 11:35 | Outpatient (CLI) | payer MEDICARE, SELFPAY ==
[2024-07-11 21:15] LABS: Coronavirus 19, PCR Not Detected (NotDetected); Human Rhinovirus Not Detected (NotDetected); Influenza B, PCR Not Detected (NotDetected); Respiratory Syncytial Virus Not Detected (NotDetected)
[2024-07-12 01:58] LABS: Influenza A, PCR Detected (NotDetected)
== END 2024-07-11 23:59 | disposition home or self-care (01) ==
LOC: LAB.DROPOF 07-12 10:54
PROVIDERS: PCP Nurse Practitioner Family; Visit Provider Nurse Practitioner Family
DX: J20.8 Acute bronchitis due to other specified organisms (principal); B96.89 Other specified bacterial agents as the cause of diseases classified elsewhere
CPT/HCPCS: 87631

== ENCOUNTER 2024-07-16 11:20 | Outpatient (CLI) | payer MEDICARE, SELFPAY ==
--- NOTE | 2024-07-16 11:23 | XR_ITS ---
FINAL REPORT TECHNIQUE: Chest PA & Lateral CLINICAL HISTORY: persistent cough COMPARISON: 04/27/2019 FINDINGS: 2 views of the chest were performed. The heart size is normal. The mediastinum is within normal limits. There is no acute cardiopulmonary process. Scarring is noted in the perihilar regions. There are no pleural effusions. There is no pneumothorax. The bony thorax appears intact. IMPRESSION: No acute cardiopulmonary process. Reviewed, Interpreted and Dictated by Andrea Villanueva MD Transcribed by Rita Hinton Authenticated and [facility]
[2024-07-16 19:23] LABS: Basophils % 0.3 % (0.1-2.0); Eosinophils # 0.2 K/mm3 (0.0-0.4); Eosinophils % 2.6 % (0.1-12.0); Hematocrit 42.4 % (37.0-47.0); Hemoglobin 13.8 g/dL (12.2-16.2); Lymphocytes # 1.3 K/mm3 (0.7-4.5); Lymphocytes % 21.4 % (10-50); Mean Corpuscular HGB Conc 32.5 g/dL (31.8-35.4); Mean Corpuscular Hemoglobin 28.5 pg (27.0-31.2); Mean Corpuscular Volume 87.6 fl (81-99); Mean Platelet Volume 11.6 fl (7.4-10.4); Monocytes # 0.7 K/mm3 (0.1-1.0); Monocytes % 11.5 % (1.7-9.3); Neutrophils # 3.9 K/mm3 (1.8-7.8); Neutrophils % 63.9 % (37.0-80.0); Platelet Count 278 K/mm3 (142-424); Red Blood Count 4.84 M/mm3 (4.20-5.40); Red Cell Distribution Width 13.2 % (11.5-17.5); White Blood Count 6.2 K/mm3 (4.8-10.8)
[2024-07-16 20:42] LABS: Albumin Level 4.3 g/dl (3.5-5.0); Chloride 104 mmol/L (98-107); Sodium 136 mmol/L (136-145)
[2024-07-16 20:44] LABS: Alanine Aminotransferase 67 U/L (12-78); Aspartate Amino Transferase 51 U/L (14-36); Blood Urea Nitrogen 27 mg/dl (7-17); Carbon Dioxide 26 mmol/L (22.0-30.0); Estimated Glomerular Filt Rate 42 ml/min (>60); GFR (African American) 51 ML/MIN (>60)
[2024-07-16 20:45] LABS: Albumin/Globulin Ratio 1.6 (1.1-1.8); Alkaline Phosphatase 84 U/L (38-126); Bilirubin,Total 0.6 mg/dl (0.2-1.3); Calcium 9.1 mg/dl (8.4-10.2); Chol/HDL Ratio 2.7 (1-3.5); Cholesterol 177 mg/dl (140-200); Globulin 2.7 g/dL (1.3-3.2); Glucose 105 mg/dl (74-100); HDL Cholesterol 65 mg/dl (40-60); Triglycerides 215 mg/dl (30-150); VLDL Cholesterol 43 mg/dL (0-40)
[2024-07-16 20:56] LABS: Direct LDL Cholesterol 73.51 mg/dL (100-129)
== END 2024-07-16 23:59 | disposition home or self-care (01) ==
LOC: RAD 11:21
PROVIDERS: PCP Family Medicine; Visit Provider Family Medicine
DX: J40 Bronchitis, not specified as acute or chronic (principal); I10 Essential (primary) hypertension
CPT/HCPCS: 71046; 80053; 80061; 85025

== ENCOUNTER 2024-08-20 12:49 | Outpatient (CLI) | payer MEDICARE, SELFPAY ==
--- OUTSIDE RECORDS SUMMARY | 2024-08-20 12:56 | XMS_ITS ---
Author Organization Unknown TREATMENT PLAN [facility] Start Date Provider Encounter for Check-up [id number] [facility]
[2024-08-20 12:59] LABS: Microscopic, Urine URINE MICROSCOPIC (MICROSCOPIC)
[2024-08-20 13:31] LABS: Hematocrit 40.4 % (37.0-47.0); Mean Corpuscular HGB Conc 32.2 g/dL (31.8-35.4); Mean Corpuscular Hemoglobin 28.3 pg (27.0-31.2); Mean Corpuscular Volume 87.8 fl (81-99); Nucleated Red Blood Cells # 0 10^3/uL; Nucleated Red Blood Cells % 0 %; Platelet Count 313 K/mm3 (142-424); Red Cell Distribution Width 13.9 % (11.5-17.5); Red Cell Distribution Width-SD 44.4 fL; White Blood Count 7.9 K/mm3 (4.8-10.8)
[2024-08-20 14:00] LABS: Appearance,Urine CLEAR (Clear); Bilirubin,Urine Negative (Negative); Blood, Urine Negative (Negative); Color,Urine YELLOW (Yellow); Glucose,Urine (UA) Negative (Negative); Ketones,Urine Negative (Negative); Leukocyte Esterase,Urine Negative (Negative); Nitrate,Urine Negative (Negative); PH,Urine 6.5 (5.0-8.5); Protein,Urine Negative (Negative); Specific Gravity, Urine 1.015 (1.005-1.030); Urobilinogen,Urine 0.2 EU/dl (0.2)
[2024-08-20 14:20] LABS: Bacteria,Urine Trace /lpf; WBC,Urine Occasional #/hpf (0-3)
[2024-08-20 14:24] LABS: Creatinine,Urine Random 75 mg/dL (Not Estab.)
[2024-08-20 14:28] LABS: Albumin Level 4.2 g/dl (3.5-5.0); Anion Gap 15.4 mEq/L (5-15); Blood Urea Nitrogen 20 mg/dl (7-17); Calcium 9.6 mg/dl (8.4-10.2); Carbon Dioxide 27 mmol/L (22.0-30.0); Chloride 102 mmol/L (98-107); Estimated Glomerular Filt Rate 47 ml/min (>60); GFR (African American) 57 ML/MIN (>60); Glucose 92 mg/dl (74-100); Potassium 4.4 mmoL/L (3.5-5.1); Sodium 140 mmol/L (136-145)
[2024-08-20 14:37] LABS: Intact Parathyroid Hormone 66.7 pg/mL (7.5-53.5)
[2024-08-20 14:41] LABS: 25-OH Vitamin D, Total 30.2 ng/mL (30-100)
== END 2024-08-20 23:59 | disposition home or self-care (01) ==
LOC: LAB 12:54
PROVIDERS: PCP Family Medicine; Visit Provider Internal Medicine Nephrology
DX: N18.31 Chronic kidney disease, stage 3a (principal)
CPT/HCPCS: 36415; 80069; 81001; 82306; 82570; 83970; 84156; 85027

== ENCOUNTER 2024-10-22 11:00 | Outpatient (CLI) | payer MEDICARE, SELFPAY ==
[2024-10-22 18:43] LABS: Basophils # 0.1 K/mm3 (0-0.2); Basophils % 1.3 % (0.1-2.0); Eosinophils # 0.3 Kmm3 (0.0-0.4); Eosinophils % 3.5 % (0.1-12.0); Hematocrit 43.6 % (37.0-47.0); Hemoglobin 13.4 g/dL (12.2-16.2); Immature Granulocytes # 0.01 10^3uL; Immature Granulocytes % 0.1 %; Lymphocytes # 1.4 K/mm3 (0.7-4.5); Mean Corpuscular HGB Conc 30.7 g/dL (31.8-35.4); Mean Corpuscular Hemoglobin 28.2 pg (27.0-31.2); Mean Corpuscular Volume 91.8 fl (81-99); Mean Platelet Volume 11.7 fl (7.4-10.4); Monocytes # 0.5 K/mm3 (0.1-1.0); Monocytes % 6.4 % (1.7-9.3); Neutrophils # 4.9 K/mm3 (1.8-7.8); Neutrophils % 68.7 % (37.0-80.0); Nucleated Red Blood Cells # 0 10^3/uL; Nucleated Red Blood Cells % 0 %; Platelet Count 306 K/mm3 (142-424); Red Blood Count 4.75 M/mm3 (4.20-5.40); Red Cell Distribution Width 13.3 % (11.5-17.5); Red Cell Distribution Width-SD 45.1 fL; White Blood Count 7.2 K/mm3 (4.8-10.8)
[2024-10-22 19:38] LABS: Alanine Aminotransferase 14 U/L (12-78); Albumin Level 4.3 g/dl (3.5-5.0); Albumin/Globulin Ratio 1.5 (1.1-1.8); Alkaline Phosphatase 89 U/L (38-126); Anion Gap 11.3 mEq/L (5-15); Aspartate Amino Transferase 23 U/L (14-36); Bilirubin,Total 0.7 mg/dl (0.2-1.3); Blood Urea Nitrogen 20 mg/dl (7-17); Calcium 9.9 mg/dl (8.4-10.2); Carbon Dioxide 28 mmol/L (22.0-30.0); Chloride 102 mmol/L (98-107); Chol/HDL Ratio 3.6 (1-3.5); Cholesterol 222 mg/dl (140-200); Estimated Glomerular Filt Rate 42 ml/min (>60); GFR (African American) 51 ML/MIN (>60); Globulin 2.9 g/dL (1.3-3.2); Glucose 78 mg/dl (74-100); HDL Cholesterol 61 mg/dl (40-60); Potassium 4.3 mmoL/L (3.5-5.1); Sodium 137 mmol/L (136-145); Total Protein,Serum 7.2 g/dl (6.3-8.2); Triglycerides 213 mg/dl (30-150); Uric Acid 6.7 mg/dl (2.5-6.2); VLDL Cholesterol 43 mg/dL (0-40)
[2024-10-22 19:48] LABS: Direct LDL Cholesterol 94.32 mg/dL (100-129)
--- OUTSIDE RECORDS SUMMARY | 2024-10-23 11:05 | XMS_ITS | Clinical Summary ---
Author Organization Healthcare Address [address] [place] [address] Care Team Providers Care Alum Operator Name Role Phone Charlotte Fonsecaie Ada DYER Primary Care Provider [phone] Allergies Active Allergy Reactions Criticality Noted Date Comments Codeine Nausea 10/30/2015 Iodinated Contrast Media Other - please document in the comment field Low 02/17/2022 Iv Contrast Hives Medium 10/30/2015 IV dye Latex Unknown - Patient st ates they do not know rxn details Low 02/17/2016 Medications MULTIPLE VITAMINS PO Take 1 tablet by mouth 1 (one) time each day. Active lisinopril 5 MG tablet Take 1 tablet (5 mg) by mouth 1 (one) time each day. Active metoprolol succinate XL (Toprol-XL) 25 MG 24 hr tablet Take 1 tablet (25 mg) by mouth 1 (one) time each day. Do not crush or chew. Active furosemide (Lasix) 40 MG tablet Take by mouth. 1/2 tablet daily Active allopurinol (Zyloprim) 100 MG tablet Take 1 tablet (100 mg) by mouth 1 (one) time each day. Active atorvastatin (Lipitor) 20 MG tablet Take 1 tablet (20 mg) by mouth 3 (three) times a week. Active Bacillus Coagulans-Inuli n (ALIGN PREBIOTIC-PROBI OTIC PO) Take by mouth. Active Cyanocobalamin [address] under the tongue. Active cholecalciferol (Vitamin D-3) 50 MCG (1999 UT) capsuleIndicati ons:Chronic kidney disease-mineral and bone disorder (CKD-MBD) Take 1 capsule by mouth daily. 90 capsule 3 08/22/2024 Active Encounters Date Type Department Care Team Description 08/22/2024 12:40 PM EDT Office Visit [facility] [address], [address] [place] [address] Lara Lang MD Stage 3a chronic kidney disease (CMS/HCC) (Primary Dx); Chronic kidney disease-mineral and bone disorder (CKD-MBD) 08/22/2024 Travel 08/17/2024 Telephone [facility] Nephrology, Bone & Mineral Metabolism [address], [address] [place] [address] Danny Lackey 08/17/2024 Telephone [facility] Nephrology, Bone & Mineral Metabolism [address], [address] [place] [address] Danny Lackey from Last 3 Months Immunizations Immunization Administration Dates Next Due Moderna COVID-19 Vaccine (Re d Cap) 12+ years 11/23/2021,01/07/2021,07/11/2020,2020 Moderna Covid-19 Vaccine 12y +, Kadeem Protein, Preservative free 02/23/2023 Pneumococcal 20-dani Conj Vaccine 02/23/2023 TD (adult), 2 Lf tetanus tox oid, preservative free, adsorbed 05/09/2008 Family History Medical History Relation Name Comments Heart disease Father Diabetes Mother Relation Name Status Comments Father Mother Social History Tobacco Use Types Packs/Day Years Used Date Smoking Tobacco: Never Passive Smoke Exposure: Never Smokeless Tobacco: Never Tobacco Cessation:Counseling Given: Not Answered Alcohol Use Standard Drinks/Week Comments Never 0 (1 standard drink = 0.6 oz pur e alcohol) Comments Unknown Sex and Gender Information Value Date Recorded Sex Assigned at Not on file Legal Sex Female 3:17 PM EDT Gender Identity Not on file Sexual Orientation Not on file Last Filed Vital Signs Vital Sign Reading Time Taken Comments Blood Pressure 138/85 08/22/2024 12:12 PM EDT Pulse 84 08/22/2024 12:12 PM EDT Temperature 37.4 C (99.3 F) 08/22/2024 12:12 PM EDT Respiratory Rate 16 08/22/2024 12:1 2 PM EDT Oxygen Saturation 96% 08/22/2024 12: 12 PM EDT Inhaled Oxygen Concentration - - Weight 80.7 kg (177 lb 14.6 oz) 025 12:12 PM EDT Height 152.4 cm (5') 08/22/2024 12:12 PM EDT Body Mass Index 34.75 08/22/2024 12:12 PM EDT Plan of Treatment Upcoming Encounters Date Type Department Care Team (Late st Contact Info) Description 08/21/2025 1:00 PM EDT Office Visit [facility] Bone [facility] Mineral Metabolism [address], [address] [place] [address] Lara Lang MD [address] [place] [address] Health Maintenance Due Date Last Done Comments UKY-Bone Density Scan 1935 UKY-Depression Screening 1935 UKY-Medicare Annual Wellness (AWV) 1935 UKY-Infant/Child/Adol SDOH Screenings 1935 UKY- SDOH Screenings 10/30/1953 UKY-Adult SDOH Screenings 10/30/1953 UKY-Zoster Vaccines (1 of 2) 10/30/1985 UKY-DTaP,Tdap,and Td Vaccines (1 - Tdap) 05/10/2008 05/09/2008 UKY-RSV Vaccine: 60+ Years or (1 - 1-dose 75+ series) 10/30/2010 [id number] Vaccine ( season) 2024 02/23/2023, 03/10/2022, 11/23/2021, Additional history exists UKY-Influenza Vaccine (Season Ended) 2025 UKY-Pneumococcal Vaccine: 50+ Years Completed 02/23/2023 UKY-Obesity Intervention Completed 025, 11/07/2023, 04/18/2023, Additional history exists HPV Vaccines Aged Out No longer eligi ble based on patient's age to complete this topic UKY-HIB Vaccines Aged Out No longer e ligible based on patient's age to complete this topic UKY-Hepatitis A Vaccines Aged Out No longer eligible based on patient's age to complete this topic UKY-IPV Vaccines Aged Out No longer e ligible based on patient's age to complete this topic UKY-Rotavirus Vaccines Aged Out No lo nger eligible based on patient's age to complete this topic Insurance [facility] MEDICARE Care Teams Alum Operator Relationship Specialty Start Date End Date Kelsie Fonseca PA [address] [place] [address] PCP - General 11/07/23
== END 2024-10-22 23:59 | disposition home or self-care (01) ==
LOC: LAB.DROPOF 10-23 10:56
PROVIDERS: PCP Family Medicine; Visit Provider Family Medicine
DX: E78.5 Hyperlipidemia, unspecified (principal); M10.9 Gout, unspecified; I12.9 Hypertensive chronic kidney disease with stage 1 through stage 4 chronic kidney disease, or unspecified chronic kidney disease; N18.9 Chronic kidney disease, unspecified
CPT/HCPCS: 80053; 80061; 84550; 85025

== ENCOUNTER 2024-12-24 12:13 | Outpatient (CLI) | payer MEDICARE, SELFPAY ==
[2024-12-24 16:49] LABS: Chloride 104 mmol/L (98-107); Potassium 4.6 mmoL/L (3.5-5.1)
[2024-12-24 16:52] LABS: Blood Urea Nitrogen 30 mg/dl (7-17); Calcium 9.9 mg/dl (8.4-10.2); Carbon Dioxide 25 mmol/L (22.0-30.0); Creatinine,Serum 1.20 mg/dl (0.52-1.04); Estimated Glomerular Filt Rate 42 ml/min (>60); GFR (African American) 51 ML/MIN (>60); Glucose 101 mg/dl (74-100)
[2024-12-24 17:10] LABS: Anion Gap 14.6 mEq/L (5-15); Sodium 139 mmol/L (136-145)
[2024-12-24 18:50] LABS: Uric Acid 8.4 mg/dl (2.5-6.2)
--- OUTSIDE RECORDS SUMMARY | 2024-12-26 09:38 | XMS_ITS | Encounter Summary ---
[facility] [address] [place] [address] Care Team Providers Care Meal Temperer Name Role Phone Regi Davis Primary Care Provider [phone] Encounter Details Date Type Department Care Team (Late st Contact Info) Description 11/26/2011 Conversion Encounter [facility] HISTORICAL CONV [address] [place] [address] Interface, See Report Social History Tobacco Use Types Packs/Day Years Used Date Smoking Tobacco: Never Assessed Comments Unknown Sex and Gender Information Value Date Recorded Sex Assigned at Not on file Legal Sex Female 11:28 AM EDT Gender Identity Not on file Sexual Orientation Not on file documented as of this encounter H&P Notes * Interface, See Report - 11/26/2011 10:01 AM EDT Allyson Barnes M.D. ' Mario Padilla M.D. ' Bryant Huertas M.D. ' SOFI Mistry M.D. ' Olayinka Silver M.D. ' Ngoc Alcala APRN [address], [address] [place] [address] [employer] OFFICE NOTE PAPA RYAN : 1935 DATE OF VISIT: 11/26/2011 PROBLEM: 1. History of stage III colorectal cancer. 2. History of noninvasive left breast cancer. SUBJECTIVE: Papa feels well. Energy level has been fine. She has had several episodes of hematochezia. She does have problems with chronic constipation. The hematochezia is scant and it improves when she goes on a stool softener. She does not stay on that on a permanent basis. She has had no night sweats or fevers. She has had no cough, chest pain, nausea, vomiting, episodes of jaundice or the like. Her last CT scan was March 2011 and she had no evidence of recurrent malignancy or any other suspicious abnormalities on examination of the abdomen and the pelvis. Her family is doing reasonably well. Unfortunately one of her in-laws took his life about a month ago. PHYSICAL EXAMINATION: VITAL SIGNS: Afebrile. Vital signs are stable. Weight steady. GENERAL: Color good. Appears relaxed and comfortable. Appears younger than stated age of 76 years. SKIN: Warm and dry. HEENT: Sclerae anicteric. NODES: No nodes palpable. LUNGS: Clear. CARDIAC: Regular rate and rhythm. ABDOMEN: Soft. No organomegaly or masses present. She has no tenderness. EXTREMITIES: She has no peripheral edema. PAPA RYAN : 1935 DATE OF VISIT: 11/26/2011 ASSESSMENT: I think Papa is doing splendidly. She is a little over six years out from her original diagnosis of stage III colon cancer and her partial colectomy which was performed on 10/18/2005. She had 2 of 16 lymph nodes involved at that time. PLAN: Although I suspect her hematochezia is on a benign basis, I think she to see Dr. Rehman to make sure everything looks okay. She is three years out from her last colonoscopy. Allyson Barnes M.D.* JJG/rxalw Doc. ID [id number] Rev. #0 cc: Dr. Greg Graham M.D.* Page 2 of 2 Page 1 of 2 Authenticated by ALLYSON BARNES M.D. On 11/28/2011 10:21:04 AM * Interface, See Report - 11/26/2011 10:01 AM EDT Allyson Barnes M.D. ' Mario Padilla M.D. ' Bryant Huertas M.D. ' SOFI Mistry M.D. ' Darnell Clarke M.D. ' Olayinka Silver M.D. ' Ngoc Alcala APRN [address] [place] [address] [place] [address] [employer] OFFICE NOTE PAPA RYAN : 1935 DATE OF VISIT: 12/06/2012 PROBLEM LIST: 1. History of stage III colorectal cancer. 2. History of noninvasive left breast cancer. SUBJECTIVE: Yearly followup for this very nice lady. She has embarked on a voluntary weight loss program and she is delighted with the 35 pounds or so that she has lost. Her significant other has also done the same. She feels better than she has in years. She has no new issues to report. She underwent laboratory testing November 25, 10 days ago, which revealed a normal CBC and chemistry profile. DRUG ALLERGIES: Codeine and IVP dye. HABITS: Does not smoke, does not drink and never has. CURRENT MEDICATIONS: Reconciled and listed on her EMR which I am staring at right now - they are minimal and include lisinopril, B12, B3, hydrochlorothiazide, Advil p.r.n. FAMILY HISTORY: Mother's family is fairly long-lived. There is a history of diabetes. There is no history of bowel cancer per se and there is no history of breast cancer. REVIEW OF SYSTEMS: No recent fevers, chills, night sweats, nausea, vomiting, visual disturbance, syncopal episodes, or seizures. She has no new bony symptoms. She has had no shortness of breath, cough, chest pain, palpitations, hemoptysis, or bowel or bladder disturbance. She has had no episodes of jaundice. Her mood has improved as she has lost weight and feels better for it. PHYSICAL EXAMINATION: GENERAL: Looks well. VITAL SIGNS: Weight is 193 which is down from 212 when she was here a year ago. Vital signs are stable and include a blood pressure of 178/77, pulse 84, temperature 97.2, respirations 16 and unlabored. She looks very relaxed and comfortable. SKIN: Warm and dry. Turgor is normal. LYMPH: No nodes are palpable. LUNGS: Clear. No rales or rhonchi. NECK: JVD is normal. CARDIAC: Distant S1, S2. Regular rate and rhythm. No murmur. BREASTS: Bilateral breast exam reveals subtle evidence of left lumpectomy. No worrisome masses palpable bilaterally. ABDOMEN: Soft and nontender. She has old surgical incisions that are well healed. She has no tenderness, masses or organomegaly. Bowel sounds are normal. EXTREMITIES: She has no peripheral edema. Her last mammogram was February 2012. ASSESSMENT: Multiple problems as listed - quiescent. PLAN: I have already mentioned the above labs being okay and I will repeat those in a year when she comes back. I will make sure she has mammography in February of this year. Allyson Barnes M.D.* JJG/rxblt Doc. ID [id number] Rev. #0 cc: PAPA RYAN : 1935 DATE OF VISIT: 12/06/2012 Page 2 of 2 Page 1 of 2 DOCUMENT CODE :[facility]: PHYSICIAN CODE :[id number]: Authenticated by ALLYSON BARNES M.D. On 12/10/2012 01:01:40 PM documented in this encounter Plan of Treatment Not on file documented as of this encounter Visit Diagnoses Not on filedocumented in this encounter Care Teams Meal Temperer Relationship Specialty Start Date End Date Regi Davis PA [facility] [place] [address] [address] PCP - General Physician Consumer Insights Intern 11/05/21 documented as of this encounter
--- OUTSIDE RECORDS SUMMARY | 2024-12-26 09:38 | XMS_ITS | Encounter Summary ---
[facility] Address [address] [place] [address] Care Team Providers Care Revolving Field Assembler Name Role Phone Regi Davis Primary Care Provider [phone] Encounter Details Date Type Department Care Team (Latest Contact Info) Description 05/23/2018 Hospital Encounter Madonna Ayala MD [address] [place] [address] Social History Tobacco Use Types Packs/Day Years Used Date Smoking Tobacco: Never Smokeless Tobacco: Never Alcohol Use Standard Drinks/Week Comments No 0 (1 standard drink = 0.6 oz pur e alcohol) Abuse Screen Answer Date Recorded Unsafe at Home or Work/School Not on file Feels Threatened by Someone? Not on file 01/2023 Does Anyone Keep You from Co ntacting Others or Doint Things Outside the Home? Not on file 02/14/2023 Physical Sign of Abuse Present Not on file 1 Housing Stability Answer Date Recorded Current Living Arrangements Not on file 01/2023 Potentially Unsafe Housing Conditions Not on cesar e 02/14/2023 Family and Community Support Answer Iker e Recorded Help with Day-to-Day Activities Not on file 02/14/2023 Lonely or Isolated Not on file 02/14/2023 Employment Answer Date Recorded Do you want help finding or keeping work or a nabil b? Not on file 02/14/2023 Disabilities Answer Date Recorded Concentrating, Remembering, or Making Decisions Difficulty Not on file 02/14/2023 Doing Errands Independently Difficulty Not on fi le 02/14/2023 Education Answer Date Recorded Help with school or training? Not on file Preferred Language Not on file 02/14/2023 Comments No Sex and Gender Information Value Date Recorded Sex Assigned at Not on file Legal Sex Female 11:28 AM EDT Gender Identity Not on file Sexual Orientation Not on file documented as of this encounter Plan of Treatment Not on file documented as of this encounter Visit Diagnoses Not on filedocumented in this encounter Care Teams Revolving Field Assembler Relationship Specialty Start Date End Date Regi Davis PA [address] [place] [address] [facility] [address] [place] [address] PCP - General Physician Shredded Filler Hopper Feeder 11/05/21 documented as of this encounter
--- OUTSIDE RECORDS SUMMARY | 2024-12-26 09:38 | XMS_ITS | Clinical Summary ---
Author Organization [facility] Address [address] [place] [address] Care Team Providers Care Lawn Service Manager Name Role Phone Regi Davis Primary Care Provider [phone] Allergies Active Allergy Reactions Criticality Noted Date Comments Codeine Sulfate Nausea Only 10/30/2015 Contrast Dye (Echo Or Unknown Ct/Mr) 10/30/2015 IV dye Latex 02/17/2016 Medications Ibuprofen (ADVIL) 200 MG capsule Take by mouth as needed. Active aspirin 81 MG EC tablet Take 81 mg by mouth daily. Active colchicine 0.6 MG tablet Take 0.6 mg by mouth 2 (two) times a day. PRN LEG CRAMPS PER PAT Active potassium chloride (K-DUR,KLOR-CON) 10 MEQ CR tablet Take 10 mEq by mouth daily. Active vitamin B-12 (CYANOCOBALAMIN) 1000 MCG tablet Take 1,000 mcg by mouth daily. Active cholecalciferol (VITAMIN D3) 400 UNITS tablet Take 400 Units by mouth daily. Active Multiple Vitamins-Mineral s (MULTIVITAMIN ADULT PO) Take 1 tablet by mouth daily. Active meclizine (ANTIVERT) 25 MG tablet Take 25 mg by mouth 3 (three) times a day as needed for dizziness. Active lisinopril (PRINIVIL,ZESTRI L) 40 MG tablet 05/06/2016 Act rossy allopurinol (ZYLOPRIM) 100 MG tablet 10/28/2016 Active atorvastatin (LIPITOR) 20 MG tablet 09/29/2016 Active MethylPREDNISolo ne (MEDROL, CARRIE,) 4 MG tablet 10/21/2016 Active hydrochlorothiaz ru (HYDRODIURIL) 12.5 MG tablet 05/10/2017 Acti ve triamterene-hydr ochlorothiazide (MAXZIDE-25) 37.5-25 MG per tablet 05/10/2017 Active predniSONE (DELTASONE) 10 MG tablet 07/07/2018 Active mesalamine (LIALDA) 1.2 g EC tablet 07/07/2018 Active ferrous gluconate (FERGON) 240 (27 FE) MG tablet Take 240 mg by mouth Daily With Breakfast. Active Active Problems Problem Noted Date Diagnosed Date Hemorrhoid 06/02/2018 Colorectal cancer, stage III 02/10/2016 Overview (02/10/2016): Images from the original note were not included. History of left breast cancer 02/10/2016 Overview (02/10/2016): Images from the original note were not included. Mass of right thigh 12/05/2015 Overview (02/10/2016): Images from the original note were not included. Mass of soft tissue 11/17/2015 Personal history of colon cancer 11/05/2015 Immunizations Immunization Administration Dates Next Due Td (TDVAX) 05/09/2008 Family History Medical History Relation Name Comments Other Maternal Grandmother adv abd ominal malignancy Diabetes Mother Diabetes Other Family Breast cancer Sister BRCA 1/2 Neg Hx Colon cancer Neg Hx Endometrial cancer Neg Hx Ovarian cancer Neg Hx Relation Name Status Comments Maternal Grandmother Mother Other Family Sister Social History Tobacco Use Types Packs/Day Years [...] Sign Reading Time Taken Comments Blood Pressure 148/65 07/14/2018 9:57 AM EST Pulse 96 07/14/2018 9:57 AM EST Temperature 36.1 C (97 F) 07/14/2018 9:57 AM EST Respiratory Rate 12 07/14/2018 9:57 AM EST Oxygen Saturation 98% 07/14/2018 9:57 AM EST Inhaled Oxygen Concentration - - Weight 84.4 kg (186 lb) 07/14/2018 9:57 AM EST Height 158.8 cm (5' 2.5 ) 11/29/2017 8:22 AM EDT Body Mass Index 33.48 11/29/2017 8:22 AM EDT Plan of Treatment Health Maintenance Due Date Last Done Comments DXA SCAN 1935 Pneumococcal Vaccine 50+ (1 of 1 - PCV) 10/30/1985 ZOSTER VACCINE (1 of 2) 10/30/1985 RSV Vaccine - Adults (1 - 1- dose 75+ series) 10/30/2010 ANNUAL PHYSICAL 11/24/2016 TDAP/TD VACCINES (2 - Tdap) 05/09/2018 05/09/2008 COVID-19 Vaccine ( - 2023-2 5 season) 2024 03/10/2022, 11/23/2021, 01/07/2021, Additional history exists INFLUENZA VACCINE 02/06/2025 Insurance [facility] MEDICARE ADVANTAGE Care Teams Lawn Service Manager Relationship Specialty Start Date End Date Regi Davis PA [address] [place] [address] [facility] [address] [place] [address] PCP - General Physician Vegetable Farming Supervisor 11/05/21
--- OUTSIDE RECORDS SUMMARY | 2024-12-26 09:38 | XMS_ITS | Clinical Summary ---
Author Organization Healthcare Address [address] [place] [address] Care Team Providers Care Cleaner And Polisher Name Role Phone Charlotte Fonsecaie Ada DYER Primary Care Provider [phone] Allergies Active Allergy Reactions Criticality Noted Date [...] tongue. Active cholecalciferol (Vitamin D-3) 50 MCG (1999) capsuleIndicati ons:Chronic kidney disease-mineral and bone disorder (CKD-MBD) Take 1 capsule by mouth daily. 90 capsule 3 08/22/2024 6 Active Immunizations Immunization Administration Dates Next Due Moderna [...] Description 08/21/2025 1:00 PM EDT Office Visit [facility] Mineral Met[facility] [address] [facility], [address] [place] [address] Lara Lang MD [address] [facility] [address] [place] [address] Health Maintenance Due Date Last Done Comments UKY-Bone Density Scan 1935 UKY-Depression Screening 1935 UKY-Medicare Annual Wellness (AWV) 1935 UKY-/Child/Adol SDOH Screenings 1935 UKY- SDOH Screenings 10/30/1953 UKY-Adult SDOH Screenings 10/30/1953 UKY-Zoster Vaccines (1 of 2) 10/30/1985 UKY-DTaP,Tdap,and Td Vaccines (1 - Tdap) 05/10/2008 05/09/2008 UKY-RSV Vaccine: 60+ Years or (1 - 1-dose 75+ series) 10/30/2010 [id number] Vaccine ( - season) 2024 02/23/2023, 03/10/2022, 11/23/2021, Additional history exists UKY-Influenza Vaccine (#1) 2025 UKY-Pneumococcal Vaccine: 50+ Years Completed 02/23/2023 [...] patient's age to complete this topic Insurance [facility] [place] [address] Care Teams Cleaner And Polisher Relationship Specialty Start Date End Date Kelsie Fonseca PA [address] [place] [address] PCP - General 11/07/23
== END 2024-12-24 23:59 | disposition home or self-care (01) ==
LOC: LAB.DROPOF 12-26 09:36
PROVIDERS: PCP Family Medicine; Visit Provider Family Medicine
DX: N18.9 Chronic kidney disease, unspecified (principal); M10.9 Gout, unspecified
CPT/HCPCS: 80048; 84550

== ENCOUNTER 2025-01-25 09:16 | Outpatient (CLI) | payer MEDICARE, SELFPAY ==
[2025-01-25 15:30] LABS: Chloride 101 mmol/L (98-107); Potassium 4.1 mmoL/L (3.5-5.1); Sodium 139 mmol/L (136-145)
[2025-01-25 15:33] LABS: Anion Gap 16.1 mEq/L (5-15); Blood Urea Nitrogen 27 mg/dl (7-17); Carbon Dioxide 26 mmol/L (22.0-30.0); Creatinine,Serum 1.30 mg/dl (0.52-1.04); Estimated Glomerular Filt Rate 39 ml/min (>60); GFR (African American) 47 ML/MIN (>60); Uric Acid 6.6 mg/dl (2.5-6.2)
[2025-01-25 15:34] LABS: Calcium 9.5 mg/dl (8.4-10.2); Glucose 106 mg/dl (74-100)
--- OUTSIDE RECORDS SUMMARY | 2025-01-28 09:54 | XMS_ITS | Clinical Summary ---
Author Organization Healthcare Address [address] [place] [address] Care Team Providers Care Flume Maker Name Role Phone Charlotte Fonsecaie Ada DYER Primary Care Provider [phone] Allergies Active Allergy Reactions Criticality Noted Date [...] Nephrology, Bone & Mineral Metabolism [address] [facility], [address] [place] [address] Lara Lang MD [address] [facility] [address] [place] [address] Health Maintenance Due Date Last Done Comments UKY-Bone Density Scan 1935 UKY-Depression Screening 1935 UKY-Medicare Annual Wellness (AWV) 1935 UKY-/Child/Adol SDOH Screenings 1935 UKY- SDOH Screenings 10/30/1953 UKY-Adult SDOH Screenings 10/30/1953 UKY-Zoster Vaccines (1 of 2) 10/30/1985 UKY-DTaP,Tdap,and Td Vaccines (1 - Tdap) 05/10/2008 05/09/2008 UKY-RSV Vaccine: 60+ Years or (1 - 1-dose 75+ series) 10/30/2010 [id number] Vaccine ( - season) 2025 02/23/2023, 03/10/2022, 11/23/2021, Additional history exists UKY-Influenza [...] patient's age to complete this topic Insurance [facility] MEDICARE Care Teams Flume Maker Relationship Specialty Start Date End Date Kelsie Fonseca PA [address] [place] [address] PCP - General 11/07/23
--- OUTSIDE RECORDS SUMMARY | 2025-01-28 09:54 | XMS_ITS | Clinical Summary ---
Author Organization [facility] Address [address] [place] [address] Care Team Providers Care Club Director Name Role Phone Regi Davis Primary Care Provider [phone] Allergies Active Allergy Reactions Criticality Noted Date [...] TDAP/TD VACCINES (2 - Tdap) 05/09/2018 05/09/2008 INFLUENZA VACCINE 12/07/2024 COVID-19 Vaccine (6 - 2024-2 6 season) 2025 03/10/2022, 11/23/2021, 01/07/2021, Additional history exists Insurance [facility] MEDICARE ADVANTAGE Care Teams Club Director Relationship Specialty Start Date End Date Regi Davis PA [address] [place] [address] [facility] [address] [place] [address] PCP - General Physician Upsetter 11/05/21
--- OUTSIDE RECORDS SUMMARY | 2025-01-28 09:54 | XMS_ITS | Encounter Summary ---
[facility] Address [address] [place] [address] Care Team Providers Care Unix Analyst Name Role Phone Regi Davis Primary Care Provider [phone] Encounter Details Date Type Department Care Team (Latest Contact Info) Description 05/23/2018 Hospital Encounter Madonna Ayala MD [address] [place] [address] Social History Tobacco Use Types Packs/Day [...] on filedocumented in this encounter Care Teams Unix Analyst Relationship Specialty Start Date End Date Regi Davis PA [address] [place] [address] [facility] [address] [place] [address] PCP - General Physician Battery Assembler 11/05/21 documented as of this encounter
--- OUTSIDE RECORDS SUMMARY | 2025-01-28 09:54 | XMS_ITS | Encounter Summary ---
[facility] Address [address] [place] [address] Care Team Providers Care Metal Neutralizer Name Role Phone Regi Davis Primary Care Provider [phone] Encounter Details Date Type Department Care Team (Late st Contact Info) Description 11/26/2011 Conversion Encounter [facility] HISTORICAL CONV [address] [place] [address] Interface, See Report Social History [...] Silver M.D. ' Ngoc Alcala APRN [address] [facility], [address] [place] [address] [employer] OFFICE NOTE PAPA RYAN : 1935 DATE [...] three years out from her last colonoscopy. Allyosn Barnes M.D.* JJG/rxalw Doc. ID [id number] Rev. #0 cc: Dr. Greg Graham M.D.* Page 2 of 2 Page 1 of 2 Authenticated by ALLYSON BARNES M.D. On 11/28/2011 10:21:04 AM * Interface, See Report - 11/26/2011 10:01 AM EDT Allyson Barnes M.D. ' Mario Padilla M.D. ' Bryant Huertas M.D. ' SOFI Mistry M.D. ' Darnell Clarke M.D. ' Olayinka Silver M.D. ' Ngoc Alcala APRN [address] [place] [address] [place] [address] [employer] OFFICE NOTE PAPA RYAN : 1935 DATE [...] year. Allyson Barnes M.D.* JJG/rxblt Doc. ID [id number] Rev. #0 cc: PAPA RYAN : 1935 DATE OF VISIT: 12/06/2012 Page 2 of 2 Page 1 of 2 DOCUMENT CODE :[facility]: PHYSICIAN CODE :[id number]: Authenticated by ALLYSON BARNES M.D. On 12/10/2012 01:01:40 PM documented in this encounter Plan of Treatment Not on file documented as of this encounter Visit Diagnoses Not on filedocumented in this encounter Care Teams Metal Neutralizer Relationship Specialty Start Date End Date Regi Davis PA [facility] [place] [address] [address] PCP - General Physician Tube Fitter 11/05/21 documented as of this encounter
== END 2025-01-25 23:59 ==
LOC: LAB.DROPOF 01-28 09:40
PROVIDERS: PCP Family Medicine; Visit Provider Family Medicine
DX: E79.0 Hyperuricemia without signs of inflammatory arthritis and tophaceous disease (principal); N28.9 Disorder of kidney and ureter, unspecified
CPT/HCPCS: 80048; 84550

== ENCOUNTER 2025-01-30 08:56 | Outpatient (CLI) | payer MEDICARE, SELFPAY ==
--- NOTE | 2025-01-30 09:03 | XR_ITS ---
FINAL REPORT CLINICAL HISTORY: knee pain - gout FINDINGS: AP, lateral and oblique views of the left knee were obtained. There is no prior exam for comparison. There is no acute osseous abnormality of the left knee. Degenerative disease is most pronounced in the medial compartment. There is a small joint effusion. No acute soft tissue abnormality. IMPRESSION: Degenerative changes and small joint effusion without acute osseous abnormality. Consider MRI if pain persists. Reviewed, Interpreted and Dictated by Lashonda Orozco MD Transcribed by Rita Hinton Authenticated and [facility] [place]
--- OUTSIDE RECORDS SUMMARY | 2025-01-30 09:07 | XMS_ITS | Patient Health Record ---
[facility] Address [address] [facility] [address] [facility] [address] [place] [id number] Care Team Providers Care Manager State Name Role Phone Raudel Graham Primary Care Provider Regi Davis Unavailable [phone] Allergies Allergen (clinical drug ingredient) Drug/Non Drug Allergy documented on EMR Reaction Allergy Type Onset Date Status codeine Codeine Unknown Drug Allergy Active Medications Medication SIG (Take, Route, Frequency, Duration) Notes Start Date End Date Status Imiquimod 5 % 1 willy applied topically 2 times a week Active Align 4 MG 1 cap(s) orally once a day; Duration: 28 day(s) Active Metoprolol Succinate ER 25 MG Take 1 tablet by mouth once daily for 90 days; Duration: 90 Active Azelastine HCl 0.05 % 1 gtt in each affected eye 2 times a day; Duration: 30 day(s) 07/23/2020 Active Lisinopril 5 MG 1 tab(s) orally once a day; Duration: 90 days Active Vitamin C 250 MG 1 tab(s) orally once a day; Duration: 30 day(s) Active Zinc Sulfate 220 (50 Zn) MG 1 cap(s) orally once a day 04/06/2022 Not-Taking Vitamin B-12 1000 MCG 1 tab(s) orally once a day; Duration: 30 day(s) Active Jobst 30-40mmHg Compression Sm DIRECTED *Please review and pick correct strength-formulati on from Medispan options. If intended option is not shown, discontinue and re-order from Quick Search* 11/22/2018 Active Paxlovid (150/100) 10 x 150 MG & 10 x 100MG bid x 5 days BID; Duration: 5 DAYS 04/06/2022 Not-Taking Multivitamin - 1 tab(s) orally once a day Active Promethazine-DM 6.25-15 MG/5ML 5 ml orally every 6 hours, prn 04/06/2022 Not-Taking Colchicine 0.6 MG 1 tab(s) orally once a day, prn 08/27/2021 Active Albuterol Sulfate HFA 108 (90 Base) MCG/ACT 2 puff(s) inhaled 4 times a day 04/06/2022 Not-Taking Atorvastatin Calcium 20 MG 1 tab(s) orally Tuesday, Tuesday, Tuesday Active Vitamin D3 50 MCG (2000 UT) 1 cap(s) orally once a day; Duration: 30 day(s) 08/20/2021 Active Benzonatate 100 MG 1 cap(s) orally 3 times a day; Duration: 5 day(s) 04/13/2022 Not-Taking Loratadine 10 MG 1 tab(s) orally once a day; Duration: 90 days 07/23/2020 Active Allopurinol 100 MG Take 2 tablets by mouth once daily; Duration: 90 Active Lasix 40 MG 1/2 tab Orally Once a day; Duration: 30 days Active Immunizations Vaccine Route Administration Date Status Comme nts COVID 19 Moderna Unknown 06/13/2020 Administered COVID 19 Moderna Unknown 07/03/2020 Administered COVID 19 Moderna Unknown 01/07/2021 Administered COVID 19 Moderna Unknown 11/23/2021 Administered Tetanus Tdap-Adacel (over 7yrs) IM Intramuscular 02/07/2007 Administered Problems Problem Type SNOMED Code ICD Code Onset Dates Problem Status W/U Status Risk Notes Problem Hyperkalemia (33765866) Hyperkalemia (E87.5) Active confirmed Problem Vitamin D deficiency (48306150) Vitamin D deficiency (E55.9) Active confirmed Problem Essential hypertension (92211907) Essential hypertension (I10) Active confirmed Problem Seasonal allergy (951715945) Seasonal allergies (J30.2) Active confirmed Problem Hyperuricemia (58709680) Hyperuricemia (E79.0) Active confirmed Problem History of malignant neoplasm of colon (902693138) History of colon cancer (Z85.038) Active confirmed Problem Mixed anxiety and depressive disorder (939457371) Depression with anxiety (F41.8) Active confirmed Problem Obese class I (578370267751288) BMI 33.0-33.9,adult (Z68.33) Active confirmed Problem Mixed hyperlipidemia (313819855) Mixed hyperlipidemia (E78.2) Active confirmed Problem Paronychia of finger of right hand (0138491124688219 1) Paronychia of finger of right hand (L03.011) Active confirmed Problem Obese class II (636469404019369) BMI 35.0-35.9,adult (Z68.35) Active confirmed Problem Renal insufficiency (466486485) Renal insufficiency (N28.9) Active confirmed Problem Iron deficiency anemia due to chronic blood loss (073491297) Iron deficiency anemia due to chronic blood loss (D50.0) Active confirmed Problem Insomnia disorder related to another mental disorder (21919456) Psychophysiological insomnia (F51.04) Active confirmed Problem Hyperlipidaemia (67397583) Hyperlipidemia, unspecified hyperlipidemia type (E78.5) Active confirmed Problem Chronic gouty arthritis (85768352) Chronic gout without tophus, unspecified cause, unspecified site (M1A.9XX0) Active confirmed Problem Inclusion cyst (677275621) Inclusion cyst (L72.0) Active confirmed Problem History of malignant neoplasm of colon (137349641) H/O malignant neoplasm of colon (Z85.038) Active confirmed Problem Gallstones (694523255) Gallstones (K80.20) Active confirmed Problem Seasonal allergic rhinitis (700721118) Seasonal allergic rhinitis, unspecified trigger (J30.2) Active confirmed Problem Paranoia (913480692) Paranoia (F22) Active confirmed Problem Ulcerative colitis (20439813) Ulcerative colitis with complication, unspecified location (K51.919) Active confirmed Problem Nodule of adrenal cortex (disorder) (968780026) Adrenal nodule (E27.8) Active confirmed Encounters Encounter Location Date Provider Diagnosis [facility] [address] [facility] [address] [place] [id number] 04/25/2024 Regi Davis Plan Of Treatment No Information Medications Administered Medication Instructions Date of Administration Dosage Notes Dexamethasone 04/23/2013 1 mL Dexamethasone 03/21/2018 1 mL rocephin one gram IM 02/09/2007 Medical (General) History Medical History History ICD Code Breast Cancer 1988 Colon Cancer 10/2005 Hyertension Ulcerative Colitis Surgical History Surgery Date(Month/Year) RT Hand Superficial Melanoma Removal Hysterectomy Lumpectomy LT Breast One FT Colon Removal 11/17/2005 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 Akash Marie n 06/21/2015 Diarrhea 05/22/2018
--- OUTSIDE RECORDS SUMMARY | 2025-01-30 09:07 | XMS_ITS | Encounter Summary ---
[facility] Address [address] [place] [address] Care Team Providers Care Wallcovering Hanger Name Role Phone Regi Davis Primary Care Provider [phone] Encounter Details Date Type Department Care Team (Latest Contact Info) Description 05/23/2018 Hospital Encounter Madonna Ayala MD [address] [place] [address] Social History Tobacco Use Types Packs/Day [...] on filedocumented in this encounter Care Teams Wallcovering Hanger Relationship Specialty Start Date End Date Regi Davis PA [address] [place] [address] [facility] [address] [facility] [place] [address] PCP - General Physician Safety Admin Assistant 11/05/21 documented as of this encounter
--- OUTSIDE RECORDS SUMMARY | 2025-01-30 09:07 | XMS_ITS | Clinical Summary ---
Author Organization [facility] Address [address] [place] [address] Care Team Providers Care Industrial Relations Representative Name Role Phone Regi Davis Primary Care Provider [phone] Allergies Active Allergy Reactions Criticality Noted Date [...] 03/10/2022, 11/23/2021, 01/07/2021, Additional history exists Insurance [facility] MEDICARE ADVANTAGE Care Teams Industrial Relations Representative Relationship Specialty Start Date End Date Regi Davis PA [address] [place] [address] [facility] [address] [place] [address] PCP - General Physician Women'S Soccer Coach 11/05/21
--- OUTSIDE RECORDS SUMMARY | 2025-01-30 09:07 | XMS_ITS | Encounter Summary ---
[facility] Address [address] [place] [address] Care Team Providers Care Talent Development Coordinator Name Role Phone Regi Davis Primary Care Provider [phone] Encounter Details Date Type Department Care Team (Late st Contact Info) Description 11/26/[address] [facility] HISTORICAL CONV [address] [place] [address] Interface, See Report Social History [...] Silver M.D. ' Ngoc Alcala APRN [address] [facility], [address] [place] [address] [employer] OFFICE NOTE PAPA RYAN : 1935 DATE [...] colonoscopy. Allyson Barnes M.D.* JJG/rxalw Doc. ID [id number] Rev. #0 cc: Dr. Greg Graham M.D.* Page 2 of 2 Page 1 of 2 Authenticated by ALLYSON BARNES M.D. On 11/28/2011 10:21:04 AM * Interface, See Report - 11/26/2011 10:01 AM EDT Allyson Barnes M.D. ' Mario Padilla M.D. ' Bryant Huertas M.D. ' SOFI Mistry M.D. ' Darnell Clarke M.D. ' Olayinka Silver M.D. ' Ngoc Alcala APRN [address] [place] [address] [place] [address] [employer] OFFICE NOTE PAPA RYAN : 1935 DATE [...] year. Allyson Barnes M.D.* JJG/rxblt Doc. ID [id number] Rev. #0 cc: PAPA RYAN : 1935 DATE OF VISIT: 12/06/2012 Page 2 of 2 Page 1 of 2 DOCUMENT CODE :[facility]: PHYSICIAN CODE :[id number]: Authenticated by ALLYSON BARNES M.D. On 12/10/2012 01:01:40 PM documented in this encounter Plan of Treatment Not on file documented as of this encounter Visit Diagnoses Not on filedocumented in this encounter Care Teams Talent Development Coordinator Relationship Specialty Start Date End Date Regi Davis PA [facility] [place] [address] [address] PCP - General Physician Remote Sensing Advisor 11/05/21 documented as of this encounter
--- OUTSIDE RECORDS SUMMARY | 2025-01-30 09:07 | XMS_ITS | Clinical Summary ---
Author Organization [facility] Address [address] [place] [address] Care Team Providers Care Leaf Sucker Operator Name Role Phone Charlotte Fonsecaie Ada DYER Primary Care Provider Allergies Active Allergy Reactions Criticality Noted Date [...] mouth daily. 90 capsule 3 08/22/2024 Active Immunizations Immunization Administration Dates Next Due [...] Nephrology, Bone & Mineral Metabolism [address] [facility], [address] [place] [address] Lara Lang MD [address] [facility] [address] [place] [address] Health Maintenance Due Date Last Done Comments [facility]-Bone Density Scan 1935 [facility]-Depression Screening 1935 [facility]-Medicare Annual Wellness (AWV) 1935 [facility]-/Child/Adol SDOH Screenings 1935 [facility]- SDOH Screenings 10/30/1953 [facility]-Adult SDOH Screenings 10/30/1953 [facility]-Zoster Vaccines (1 of 2) 10/30/1985 [facility]-DTaP,Tdap,and Td Vaccines (1 - Tdap) 05/10/2008 05/09/2008 [facility]-RSV Vaccine: 60+ Years or (1 - 1-dose 75+ series) 10/30/2010 [id number] Vaccine ( - season) 2025 02/23/2023, 03/10/2022, [...] patient's age to complete this topic Insurance [facility] [place] [address] Care Teams Leaf Sucker Operator Relationship Specialty Start Date End Date Kelsie Fonseca PA [address] [place] [address] PCP - General 11/07/23
--- NOTE | 2025-01-30 09:49 | XR_ITS ---
FINAL REPORT CLINICAL HISTORY: left hip pain FINDINGS: An AP view of the pelvis and a frog leg view of the left hip were obtained. There is naproxen for comparison. There is no acute fracture or dislocation. There is mild degenerative joint disease. Remaining osseous pelvis is without acute abnormality. Soft tissues are unremarkable. IMPRESSION: Degenerative change without acute osseous abnormality of the left hip. Reviewed, Interpreted and Dictated by Lashonda Orozco MD Transcribed by Rita Hinton Authenticated and [facility]
== END 2025-01-30 23:59 | disposition home or self-care (01) ==
LOC: RAD 08:58
PROVIDERS: PCP Family Medicine; Visit Provider Physician Assistant
DX: M16.12 Unilateral primary osteoarthritis, left hip (principal); M17.12 Unilateral primary osteoarthritis, left knee; M25.462 Effusion, left knee; M10.9 Gout, unspecified
CPT/HCPCS: 73502; 73562

== ENCOUNTER 2025-02-22 11:49 | Outpatient (CLI) | payer MEDICARE, SELFPAY ==
[2025-02-22 15:36] LABS: Chloride 100 mmol/L (98-107)
[2025-02-22 15:37] LABS: Potassium 4.8 mmoL/L (3.5-5.1); Sodium 137 mmol/L (136-145)
[2025-02-22 15:40] LABS: Anion Gap 13.8 mEq/L (5-15); Blood Urea Nitrogen 21 mg/dl (7-17); Calcium 9.2 mg/dl (8.4-10.2); Carbon Dioxide 28 mmol/L (22.0-30.0); Creatinine,Serum 1.20 mg/dl (0.52-1.04); Estimated Glomerular Filt Rate 42 ml/min (>60); GFR (African American) 51 ML/MIN (>60); Glucose 90 mg/dl (74-100)
[2025-02-22 17:05] LABS: Uric Acid 4.8 mg/dl (2.5-6.2)
== END 2025-02-22 23:59 ==
LOC: LAB.DROPOF 02-25 11:50
PROVIDERS: PCP Family Medicine; Visit Provider Family Medicine
DX: M10.9 Gout, unspecified (principal)
CPT/HCPCS: 80048; 84550